=== PATIENT | female | born 1930 | race Caucasian/White ===

== ENCOUNTER 2017-09-30 14:10 | Inpatient (IN) | payer MEDICARE, BC ==
[2017-09-30] MEDS: METHYLPREDNISOLONE 125 MG INJ IV (16:37)
[2017-09-30] MEDS: SODIUM CHLORIDE 0.9% 1L BAG IV* (16:38)
[2017-09-30] MEDS: LEVOFLOXACIN 750MG/D5W (PMX) 150 ML IVPB (16:39)
[2017-09-30 16:55] LABS: ADD MAN DIFF? NO
[2017-09-30 16:58] LABS: WHITE BLOOD COUNT 4.1 10^3/ul (4.8-10.8)
[2017-09-30 16:58] LABS: BASOPHILS % 0.2 % (0.0-2.0); EOSINOPHILS % 0.5 % (0.0-7.0); HEMATOCRIT 43.4 % (37.0-47.0); HEMOGLOBIN 14.1 g/dl (12.0-16.0); LYMPHOCYTES # 1.5 10^3/ul (0.8-2.9); LYMPHOCYTES % 36.6 % (15.0-51.0); MEAN CORPUSCULAR HGB CONC 32.5 g/dl (32.0-37.0); MEAN CORPUSCULAR VOLUME 89.1 fl (82.0-101.0); MEAN PLATELET VOLUME 9.3 fl (7.4-10.4); MONOCYTE # 0.6 10^3/ul (0.3-0.9); MONOCYTES % 14.3 % (0.0-11.0); NEUTROPHILS % 48.2 % (39.0-77.0); PLATELET COUNT 189 10^3/UL (140-415); RED BLOOD COUNT 4.87 10^6/ul (4.20-5.40); RED CELL DISTRIBUTION WIDTH 13.2 % (11.5-14.5)
[2017-09-30 17:16] LABS: INR 0.92; PROTIME 12.4 Sec (11.9-14.9)
[2017-09-30 17:22] LABS: ALANINE AMINOTRANSFERASE 36 IU/L (13-69); ALBUMIN 4.1 g/dl (3.3-4.9); ALBUMIN/GLOBULIN RATIO 1.51; ALKALINE PHOSPHATASE 72 IU/L (42-121); AMYLASE 147 U/L (11-123); ANION GAP 16 (8-16); ASPARTATE AMINO TRANSFERASE 46 IU/L (15-46); BILIRUBIN,INDIRECT 0.1 mg/dl (0-1.1); BILIRUBIN,TOTAL 0.1 mg/dl (0.2-1.3); BLOOD UREA NITROGEN 20 mg/dl (7-20); CALCIUM 9.5 mg/dl (8.4-10.2); CARBON DIOXIDE 25 mmol/L (21-31); CHLORIDE 101 mmol/L (97-110); GLUCOSE 112 mg/dl (70-220); LIPASE 334 U/L (23-300); POTASSIUM 3.9 mmol/L (3.5-5.1); SODIUM 138 mmol/L (135-144); TOTAL PROTEIN 6.8 g/dl (6.1-8.1)
[2017-09-30 17:36] LABS: B-TYPE NATRIURETIC PEPTIDE 134 PG/ML (0-450)
[2017-09-30 17:43] LABS: TROPONIN-I < 0.012 ng/ml (0.00-0.12)
[2017-09-30] MEDS: ALBUTEROL 0.083% (NEB) 2.5 MG/3 ML AMP NEB (17:50)
[2017-09-30] MEDS: IPRATROPIUM (NEB) 0.5 MG/2.5 ML AMP INH (17:50)
[2017-09-30] MEDS: IPRATROPIUM (NEB) 0.5 MG/2.5 ML AMP NEB (17:50)
[2017-09-30 18:13] LABS: ADD UMIC YES; UR ASCORBIC ACID NEGATIVE (NEGATIVE); UR BILIRUBIN (Dip) NEGATIVE (NEGATIVE); UR BLOOD (Dip) 1+ mg/dL (NEGATIVE); UR CLARITY SLIGHTLY CLOUDY (CLEAR); UR COLOR YELLOW (YELLOW); UR GLUCOSE (Dip) NEGATIVE (NEGATIVE); UR KETONES (Dip) TRACE mg/dL (NEGATIVE); UR LEUKOCYTE ESTERASE (Dip) NEGATIVE Leu/ul (NEGATIVE); UR MUCUS FEW /HPF (NONE SEEN); UR NITRITE (Dip) NEGATIVE (NEGATIVE); UR RBC 14 /HPF (0-5); UR SPECIFIC GRAVITY (Dip) 1.014 (1.003-1.030); UR TOTAL PROTEIN (Dip) 2+ mg/dl (NEGATIVE); UR UROBILINOGEN (Dip) 2+ mg/dL (NEGATIVE); UR WBC 5 /HPF (0-5)
[2017-09-30 18:36] LABS: AADO2 Arterial 42.8 mmHg (7.0-24.0); Allen Test ACCEPTAB; Arterial Blood Gas Oxygen Sat 90.9 mmHG (95.0-100.0); Arterial COHb 0.3 % (0.0-3.0); Arterial Fraction of Oxyhgb 90.5 % (93.0-99.0); Arterial HCO3 24.1 mmol/L (22.0-26.0); Arterial MetHb 0.1 % (0.0-1.5); Arterial Total Hemglobin 13.2 g/dl (12.0-18.0); Arterial pCO2 41.5 mmhg (35-45); MODE ROOM AIR; Site Right Radial
[2017-09-30] MEDS ORDERED: ZOLPIDEM 5 MG TAB PO (22:00)
[2017-09-30] MEDS: ALBUTEROL 0.5% (NEB) 2.5 MG/0.5 ML AMP INH (22:33)
[2017-09-30] MEDS: METHYLPREDNISOLONE 40 MG INJ IV (23:04)
[2017-09-30] MEDS: DEXTROSE 5%-0.45% NACL 1,000 ML IV (23:05)
[2017-10-01] MEDS: PANTOPRAZOLE (EC) 40 MG TAB PO (06:36)
[2017-10-01] MEDS: METHYLPREDNISOLONE 40 MG INJ IV ×3 (06:36→21:42)
[2017-10-01 06:57] LABS: WHITE BLOOD COUNT 2.4 10^3/ul (4.8-10.8)
[2017-10-01 06:57] LABS: ABNORMAL IP MESSAGE 1; HEMATOCRIT 39.4 % (37.0-47.0); HEMOGLOBIN 12.9 g/dl (12.0-16.0); MEAN CORPUSCULAR HEMOGLOBIN 29.2 pg (29.0-33.0); MEAN CORPUSCULAR HGB CONC 32.7 g/dl (32.0-37.0); MEAN CORPUSCULAR VOLUME 89.1 fl (82.0-101.0); MEAN PLATELET VOLUME 9.5 fl (7.4-10.4); PLATELET COUNT 173 10^3/UL (140-415); RED BLOOD COUNT 4.42 10^6/ul (4.20-5.40); RED CELL DISTRIBUTION WIDTH 13.3 % (11.5-14.5)
[2017-10-01 07:21] LABS: POSITIVE DIFF @See below
[2017-10-01 07:22] LABS: ADD MAN DIFF? YES
[2017-10-01 07:51] LABS: ANION GAP 14 (8-16); BLOOD UREA NITROGEN 14 mg/dl (7-20); CALCIUM 8.9 mg/dl (8.4-10.2); CARBON DIOXIDE 24 mmol/L (21-31); CHLORIDE 108 mmol/L (97-110); CREATININE 0.84 mg/dl (0.44-1.00); GLUCOSE 190 mg/dl (70-220); POTASSIUM 4.1 mmol/L (3.5-5.1); SODIUM 142 mmol/L (135-144)
[2017-10-01 09:17] LABS: ANISOCYTOSIS 1+ (0-0); BAND NEUTROPHILS #M 0.1 10^3/ul (0.0-0.6); BAND NEUTROPHILS % (M) 5 % (0-4); BURR CELLS 2+ (0-0); LYMPHOCYTES #M 0.3 10^3/ul (0.8-2.9); LYMPHOCYTES % (M) 15 % (15-51); OVALOCYTES 1+ (0-0); PLATELET ESTIMATE NORMAL; POIKILOCYTOSIS 2+ (0-0); REACTIVE LYMPHOCYTES #M 0.1 10^3/ul (0.0-0.0); REACTIVE LYMPHOCYTES% (M) 5 % (0-0); SEG NEUT #M 1.8 10^3/ul (1.7-7.5); SEGMENTED NEUTROPHILS (M) % 75 % (39-77); SMUDGE%M 4 % (0-0)
[2017-10-01] MEDS: LEVOFLOXACIN 500MG/D5W (PMX) 100 ML IVPB (15:18)
[2017-10-01] MEDS: ACETAMINOPHEN 500 MG TAB PO (19:38)
[2017-10-01] MEDS: DEXTROSE 5%-0.45% NACL 1,000 ML IV (19:38)
[2017-10-02] MEDS: PANTOPRAZOLE (EC) 40 MG TAB PO (06:26)
[2017-10-02 07:02] LABS: ADD MAN DIFF? NO
[2017-10-02 07:06] LABS: WHITE BLOOD COUNT 10.1 10^3/ul (4.8-10.8)
[2017-10-02 07:06] LABS: BASOPHILS % 0.1 % (0.0-2.0); HEMATOCRIT 39.8 % (37.0-47.0); HEMOGLOBIN 13.1 g/dl (12.0-16.0); LYMPHOCYTES # 0.8 10^3/ul (0.8-2.9); LYMPHOCYTES % 8.3 % (15.0-51.0); MEAN CORPUSCULAR HGB CONC 32.9 g/dl (32.0-37.0); MEAN CORPUSCULAR VOLUME 88.2 fl (82.0-101.0); MEAN PLATELET VOLUME 9.5 fl (7.4-10.4); MONOCYTE # 0.3 10^3/ul (0.3-0.9); MONOCYTES % 3.3 % (0.0-11.0); NEUTROPHIL # 8.9 10^3/ul (1.6-7.5); NEUTROPHILS % 87.8 % (39.0-77.0); PLATELET COUNT 195 10^3/UL (140-415); RED BLOOD COUNT 4.51 10^6/ul (4.20-5.40); RED CELL DISTRIBUTION WIDTH 13.2 % (11.5-14.5)
[2017-10-02 07:53] LABS: ANION GAP 16 (8-16); BLOOD UREA NITROGEN 13 mg/dl (7-20); CALCIUM 9.3 mg/dl (8.4-10.2); CARBON DIOXIDE 26 mmol/L (21-31); CHLORIDE 105 mmol/L (97-110); CREATININE 0.79 mg/dl (0.44-1.00); GLUCOSE 165 mg/dl (70-220); POTASSIUM 3.6 mmol/L (3.5-5.1); SODIUM 143 mmol/L (135-144)
[2017-10-02] MEDS: METHYLPREDNISOLONE 40 MG INJ IV ×2 (09:00→21:32)
[2017-10-02] MEDS: DEXTROSE 5%-0.45% NACL 1,000 ML IV ×2 (14:00→16:42)
[2017-10-02] MEDS: LEVOFLOXACIN 500MG/D5W (PMX) 100 ML IVPB (16:43)
[2017-10-02] MEDS: PROMETHAZINE/CODEINE 5ML CUP PO (16:49)
[2017-10-02] MEDS: MAGNESIUM HYDROXIDE 30ML CUP PO (21:33)
[2017-10-02] MEDS: DOCUSATE SODIUM 100 MG CAP PO (21:33)
[2017-10-03] MEDS: PANTOPRAZOLE (EC) 40 MG TAB PO (05:27)
[2017-10-03] MEDS: METHYLPREDNISOLONE 40 MG INJ IV (08:45)
[2017-10-03] MEDS: DOCUSATE SODIUM 100 MG CAP PO ×2 (08:49→21:40)
[2017-10-03] MEDS: ENOXAPARIN 30 MG/0.3 ML SYG SC (08:49)
[2017-10-03] MEDS: DEXTROSE 5%-0.45% NACL 1,000 ML IV (10:00)
[2017-10-03] MEDS: predniSONE 10 MG TAB PO (14:37)
[2017-10-03] MEDS: LEVOFLOXACIN 500MG/D5W (PMX) 100 ML IVPB (16:05)
[2017-10-03] MEDS: ACETAMINOPHEN 500 MG TAB PO (17:17)
[2017-10-04] MEDS: PAROXETINE 10 MG TAB PO ×2 (00:28→08:19)
[2017-10-04] MEDS: PANTOPRAZOLE (EC) 40 MG TAB PO (06:01)
[2017-10-04 08:15] LABS: ADD MAN DIFF? NO
[2017-10-04] MEDS: DOCUSATE SODIUM 100 MG CAP PO ×2 (08:19→20:52)
[2017-10-04] MEDS: predniSONE 10 MG TAB PO (08:19)
[2017-10-04 08:24] LABS: BASOPHILS % 0.1 % (0.0-2.0); HEMATOCRIT 41.2 % (37.0-47.0); HEMOGLOBIN 14.2 g/dl (12.0-16.0); LYMPHOCYTES # 1.5 10^3/ul (0.8-2.9); LYMPHOCYTES % 15.3 % (15.0-51.0); MEAN CORPUSCULAR HEMOGLOBIN 29.5 pg (29.0-33.0); MEAN CORPUSCULAR HGB CONC 34.5 g/dl (32.0-37.0); MEAN CORPUSCULAR VOLUME 85.7 fl (82.0-101.0); MEAN PLATELET VOLUME 9.7 fl (7.4-10.4); MONOCYTE # 0.9 10^3/ul (0.3-0.9); MONOCYTES % 9.1 % (0.0-11.0); NEUTROPHIL # 7.4 10^3/ul (1.6-7.5); PLATELET COUNT 230 10^3/UL (140-415); RED BLOOD COUNT 4.81 10^6/ul (4.20-5.40)
[2017-10-04] MEDS: ENOXAPARIN 30 MG/0.3 ML SYG SC (08:25)
[2017-10-04 08:54] LABS: ANION GAP 13 (8-16); BLOOD UREA NITROGEN 16 mg/dl (7-20); CARBON DIOXIDE 31 mmol/L (21-31); CHLORIDE 99 mmol/L (97-110); CREATININE 0.75 mg/dl (0.44-1.00); GLUCOSE 106 mg/dl (70-220); MAGNESIUM 2.1 mg/dl (1.7-2.5); SODIUM 140 mmol/L (135-144)
[2017-10-04] MEDS: POTASSIUM CHLORIDE (SR) 20 MEQ TAB PO (10:37)
[2017-10-04] MEDS: ACETAMINOPHEN 500 MG TAB PO (12:31)
[2017-10-04] MEDS: PROMETHAZINE/CODEINE 5ML CUP PO (16:08)
[2017-10-04] MEDS: LEVOFLOXACIN 500MG/D5W (PMX) 100 ML IVPB (16:08)
[2017-10-04] MEDS: VANCOMYCIN 1 GM (PMX) 250 ML IVPB (16:37)
[2017-10-04] MEDS: DORZOLAMIDE 2% 10 ML OPH BOTH EYES (20:52)
[2017-10-05] MEDS: PANTOPRAZOLE (EC) 40 MG TAB PO (05:38)
[2017-10-05 06:07] LABS: ADD MAN DIFF? NO
[2017-10-05 06:11] LABS: WHITE BLOOD COUNT 8.6 10^3/ul (4.8-10.8)
[2017-10-05 06:11] LABS: BASOPHILS % 0.1 % (0.0-2.0); HEMATOCRIT 41.1 % (37.0-47.0); HEMOGLOBIN 13.9 g/dl (12.0-16.0); LYMPHOCYTES # 1.6 10^3/ul (0.8-2.9); LYMPHOCYTES % 18.6 % (15.0-51.0); MEAN CORPUSCULAR HEMOGLOBIN 29.3 pg (29.0-33.0); MEAN CORPUSCULAR HGB CONC 33.8 g/dl (32.0-37.0); MEAN CORPUSCULAR VOLUME 86.7 fl (82.0-101.0); MEAN PLATELET VOLUME 9.3 fl (7.4-10.4); PLATELET COUNT 222 10^3/UL (140-415); RED BLOOD COUNT 4.74 10^6/ul (4.20-5.40); RED CELL DISTRIBUTION WIDTH 13.1 % (11.5-14.5)
[2017-10-05 06:39] LABS: ANION GAP 11 (8-16); BLOOD UREA NITROGEN 18 mg/dl (7-20); CALCIUM 8.9 mg/dl (8.4-10.2); CARBON DIOXIDE 32 mmol/L (21-31); CHLORIDE 101 mmol/L (97-110); CREATININE 0.76 mg/dl (0.44-1.00); GLUCOSE 99 mg/dl (70-220); MAGNESIUM 2.2 mg/dl (1.7-2.5); POTASSIUM 3.4 mmol/L (3.5-5.1); SODIUM 141 mmol/L (135-144)
[2017-10-05] MEDS: DOCUSATE SODIUM 100 MG CAP PO ×2 (08:55→20:43)
[2017-10-05] MEDS: predniSONE 10 MG TAB PO (08:56)
[2017-10-05] MEDS: PAROXETINE 10 MG TAB PO (08:56)
[2017-10-05] MEDS: DORZOLAMIDE 2% 10 ML OPH BOTH EYES ×2 (08:57→20:42)
[2017-10-05] MEDS: ENOXAPARIN 30 MG/0.3 ML SYG SC (08:58)
[2017-10-05] MEDS: POTASSIUM CHLORIDE (SR) 10 MEQ TAB PO (09:24)
[2017-10-05] MEDS: AMLODIPINE 2.5 MG TAB PO (09:24)
[2017-10-05] MEDS: ALBUTEROL 0.083% (NEB) 2.5 MG/3 ML AMP HHN ×2 (15:43→21:32)
[2017-10-05] MEDS: LEVOFLOXACIN 500MG/D5W (PMX) 100 ML IVPB (15:59)
[2017-10-05] MEDS: PROMETHAZINE/CODEINE 5ML CUP PO (15:59)
[2017-10-06 06:03] LABS: ADD MAN DIFF? NO
[2017-10-06] MEDS: PANTOPRAZOLE (EC) 40 MG TAB PO (06:09)
[2017-10-06 06:13] LABS: WHITE BLOOD COUNT 9.8 10^3/ul (4.8-10.8)
[2017-10-06 06:13] LABS: BASOPHILS % 0.3 % (0.0-2.0); EOSINOPHILS % 0.3 % (0.0-7.0); HEMATOCRIT 40.6 % (37.0-47.0); HEMOGLOBIN 13.5 g/dl (12.0-16.0); LYMPHOCYTES # 1.6 10^3/ul (0.8-2.9); LYMPHOCYTES % 15.9 % (15.0-51.0); MEAN CORPUSCULAR HEMOGLOBIN 29.5 pg (29.0-33.0); MEAN CORPUSCULAR HGB CONC 33.3 g/dl (32.0-37.0); MEAN CORPUSCULAR VOLUME 88.6 fl (82.0-101.0); MEAN PLATELET VOLUME 9.3 fl (7.4-10.4); MONOCYTES % 10.6 % (0.0-11.0); NEUTROPHILS % 71.3 % (39.0-77.0); PLATELET COUNT 223 10^3/UL (140-415); RED BLOOD COUNT 4.58 10^6/ul (4.20-5.40); RED CELL DISTRIBUTION WIDTH 13.2 % (11.5-14.5)
[2017-10-06 06:58] LABS: ANION GAP 13 (8-16); BLOOD UREA NITROGEN 19 mg/dl (7-20); CALCIUM 8.7 mg/dl (8.4-10.2); CARBON DIOXIDE 30 mmol/L (21-31); CHLORIDE 101 mmol/L (97-110); CREATININE 0.79 mg/dl (0.44-1.00); GLUCOSE 100 mg/dl (70-220); POTASSIUM 3.8 mmol/L (3.5-5.1); SODIUM 140 mmol/L (135-144)
[2017-10-06] MEDS: DORZOLAMIDE 2% 10 ML OPH BOTH EYES ×2 (09:12→20:26)
[2017-10-06] MEDS: predniSONE 10 MG TAB PO (09:12)
[2017-10-06] MEDS: PAROXETINE 10 MG TAB PO (09:13)
[2017-10-06] MEDS: DOCUSATE SODIUM 100 MG CAP PO ×2 (09:13→20:26)
[2017-10-06] MEDS: AMLODIPINE 2.5 MG TAB PO (09:13)
[2017-10-06] MEDS: ENOXAPARIN 30 MG/0.3 ML SYG SC (09:22)
[2017-10-06] MEDS: ALBUTEROL 0.083% (NEB) 2.5 MG/3 ML AMP HHN ×3 (10:05→20:30)
[2017-10-06] MEDS: LEVOFLOXACIN 500MG/D5W (PMX) 100 ML IVPB (16:51)
[2017-10-06] MEDS: MAGNESIUM CITRATE 300 ML BTL PO (19:30)
[2017-10-06] MEDS: FLUTICASONE 0.05% 16 GM NAS SPRAY NASAL (20:26)
[2017-10-06] MEDS: IOHEXOL 300MG/ML 150 ML BTL (22:05)
[2017-10-06] MEDS: SOD CHLORIDE 0.9% 100 ML (22:05)
[2017-10-07] MEDS: PANTOPRAZOLE (EC) 40 MG TAB PO (06:30)
[2017-10-07] MEDS: PAROXETINE 10 MG TAB PO (09:12)
[2017-10-07] MEDS: predniSONE 10 MG TAB PO (09:12)
[2017-10-07] MEDS: DOCUSATE SODIUM 100 MG CAP PO ×2 (09:12→21:20)
[2017-10-07] MEDS: AMLODIPINE 2.5 MG TAB PO (09:13)
[2017-10-07] MEDS: DORZOLAMIDE 2% 10 ML OPH BOTH EYES ×2 (09:13→21:20)
[2017-10-07] MEDS: FLUTICASONE 0.05% 16 GM NAS SPRAY NASAL ×2 (09:13→21:20)
[2017-10-07] MEDS: ENOXAPARIN 30 MG/0.3 ML SYG SC (09:19)
[2017-10-07] MEDS: ALBUTEROL 0.083% (NEB) 2.5 MG/3 ML AMP HHN ×3 (09:41→20:42)
[2017-10-07] MEDS: LEVOFLOXACIN 500MG/D5W (PMX) 100 ML IVPB (16:30)
[2017-10-08] MEDS: PANTOPRAZOLE (EC) 40 MG TAB PO (05:45)
[2017-10-08 05:58] LABS: ADD MAN DIFF? NO
[2017-10-08 06:00] LABS: BASOPHILS % 0.2 % (0.0-2.0); EOSINOPHILS % 0.1 % (0.0-7.0); HEMATOCRIT 39.3 % (37.0-47.0); HEMOGLOBIN 12.9 g/dl (12.0-16.0); LYMPHOCYTES # 1.2 10^3/ul (0.8-2.9); LYMPHOCYTES % 10.3 % (15.0-51.0); MEAN CORPUSCULAR HEMOGLOBIN 29.1 pg (29.0-33.0); MEAN CORPUSCULAR HGB CONC 32.8 g/dl (32.0-37.0); MEAN CORPUSCULAR VOLUME 88.7 fl (82.0-101.0); MEAN PLATELET VOLUME 9.2 fl (7.4-10.4); MONOCYTE # 0.9 10^3/ul (0.3-0.9); MONOCYTES % 7.9 % (0.0-11.0); NEUTROPHIL # 9.2 10^3/ul (1.6-7.5); NEUTROPHILS % 80.1 % (39.0-77.0); PLATELET COUNT 233 10^3/UL (140-415); RED BLOOD COUNT 4.43 10^6/ul (4.20-5.40); RED CELL DISTRIBUTION WIDTH 13.4 % (11.5-14.5)
[2017-10-08 06:00] LABS: WHITE BLOOD COUNT 11.5 10^3/ul (4.8-10.8)
[2017-10-08] MEDS: ALBUTEROL 0.083% (NEB) 2.5 MG/3 ML AMP HHN ×3 (06:28→20:40)
[2017-10-08 06:49] LABS: ALANINE AMINOTRANSFERASE 40 IU/L (13-69); ALKALINE PHOSPHATASE 49 IU/L (42-121); ANION GAP 9 (8-16); ASPARTATE AMINO TRANSFERASE 23 IU/L (15-46); BILIRUBIN,INDIRECT 0.4 mg/dl (0-1.1); BILIRUBIN,TOTAL 0.4 mg/dl (0.2-1.3); BLOOD UREA NITROGEN 19 mg/dl (7-20); CALCIUM 8.5 mg/dl (8.4-10.2); CARBON DIOXIDE 31 mmol/L (21-31); CHLORIDE 101 mmol/L (97-110); CREATININE 0.78 mg/dl (0.44-1.00); GLUCOSE 115 mg/dl (70-220); SODIUM 137 mmol/L (135-144); TOTAL PROTEIN 5.3 g/dl (6.1-8.1)
[2017-10-08 07:10] LABS: CARCINOEMBRYONIC ANTIGEN 1.6 ng/ml (0.0-5.0)
[2017-10-08 07:14] LABS: CANCER ANTIGEN 19-9 60.8 U/ml (0.0-37.0)
[2017-10-08] MEDS: FLUTICASONE 0.05% 16 GM NAS SPRAY NASAL ×2 (08:50→20:35)
[2017-10-08] MEDS: AMLODIPINE 2.5 MG TAB PO (08:50)
[2017-10-08] MEDS: predniSONE 10 MG TAB PO (08:50)
[2017-10-08] MEDS: DORZOLAMIDE 2% 10 ML OPH BOTH EYES ×2 (08:50→20:35)
[2017-10-08] MEDS: PAROXETINE 10 MG TAB PO (08:50)
[2017-10-08] MEDS: DOCUSATE SODIUM 100 MG CAP PO ×2 (08:50→20:34)
[2017-10-08] MEDS: ENOXAPARIN 30 MG/0.3 ML SYG SC (08:52)
[2017-10-08] MEDS: SOD CHLORIDE 0.9% 100 ML (11:54)
[2017-10-08] MEDS: IOHEXOL 300MG/ML 150 ML BTL (11:54)
[2017-10-08 14:36] LABS: CANCER ANTIGEN 125 7.5 U/ml (0.0-35.0)
[2017-10-08] MEDS: LEVOFLOXACIN 500MG/D5W (PMX) 100 ML IVPB (17:02)
[2017-10-08] MEDS: PROMETHAZINE/CODEINE 5ML CUP PO (18:14)
[2017-10-09] MEDS: PANTOPRAZOLE (EC) 40 MG TAB PO (06:16)
[2017-10-09] MEDS: AMLODIPINE 2.5 MG TAB PO (10:12)
[2017-10-09] MEDS: PAROXETINE 10 MG TAB PO (10:12)
[2017-10-09] MEDS: DOCUSATE SODIUM 100 MG CAP PO ×2 (10:12→20:46)
[2017-10-09] MEDS: predniSONE 10 MG TAB PO (10:12)
[2017-10-09] MEDS: FLUTICASONE 0.05% 16 GM NAS SPRAY NASAL ×2 (10:12→20:46)
[2017-10-09] MEDS: DORZOLAMIDE 2% 10 ML OPH BOTH EYES ×2 (10:13→20:47)
[2017-10-09] MEDS: ENOXAPARIN 30 MG/0.3 ML SYG SC (10:28)
[2017-10-09] MEDS: LEVOFLOXACIN 500MG/D5W (PMX) 100 ML IVPB (15:47)
[2017-10-09] MEDS: ALBUTEROL 0.083% (NEB) 2.5 MG/3 ML AMP HHN (20:51)
[2017-10-10 06:03] LABS: ADD MAN DIFF? NO
[2017-10-10 06:10] LABS: WHITE BLOOD COUNT 9.3 10^3/ul (4.8-10.8)
[2017-10-10 06:10] LABS: BASOPHILS % 0.1 % (0.0-2.0); EOSINOPHILS % 0.1 % (0.0-7.0); HEMATOCRIT 38.5 % (37.0-47.0); HEMOGLOBIN 12.7 g/dl (12.0-16.0); LYMPHOCYTES # 1.1 10^3/ul (0.8-2.9); LYMPHOCYTES % 12.2 % (15.0-51.0); MEAN CORPUSCULAR HEMOGLOBIN 29.5 pg (29.0-33.0); MEAN CORPUSCULAR VOLUME 89.3 fl (82.0-101.0); MEAN PLATELET VOLUME 9.4 fl (7.4-10.4); MONOCYTE # 0.7 10^3/ul (0.3-0.9); MONOCYTES % 7.5 % (0.0-11.0); NEUTROPHIL # 7.3 10^3/ul (1.6-7.5); NEUTROPHILS % 78.3 % (39.0-77.0); PLATELET COUNT 235 10^3/UL (140-415); RED BLOOD COUNT 4.31 10^6/ul (4.20-5.40); RED CELL DISTRIBUTION WIDTH 13.6 % (11.5-14.5)
[2017-10-10] MEDS: PANTOPRAZOLE (EC) 40 MG TAB PO (06:22)
[2017-10-10 06:51] LABS: ALANINE AMINOTRANSFERASE 39 IU/L (13-69); ALKALINE PHOSPHATASE 45 IU/L (42-121); ANION GAP 8 (8-16); ASPARTATE AMINO TRANSFERASE 20 IU/L (15-46); BILIRUBIN,INDIRECT 0.3 mg/dl (0-1.1); BILIRUBIN,TOTAL 0.3 mg/dl (0.2-1.3); BLOOD UREA NITROGEN 20 mg/dl (7-20); CALCIUM 9.1 mg/dl (8.4-10.2); CARBON DIOXIDE 32 mmol/L (21-31); CHLORIDE 101 mmol/L (97-110); CREATININE 0.79 mg/dl (0.44-1.00); GLUCOSE 110 mg/dl (70-220); POTASSIUM 4.1 mmol/L (3.5-5.1); SODIUM 137 mmol/L (135-144); TOTAL PROTEIN 5.5 g/dl (6.1-8.1)
[2017-10-10] MEDS: AMLODIPINE 2.5 MG TAB PO (08:38)
[2017-10-10] MEDS: predniSONE 10 MG TAB PO (08:38)
[2017-10-10] MEDS: DORZOLAMIDE 2% 10 ML OPH BOTH EYES ×2 (08:39→20:27)
[2017-10-10] MEDS: FLUTICASONE 0.05% 16 GM NAS SPRAY NASAL ×2 (08:39→20:27)
[2017-10-10] MEDS: PAROXETINE 10 MG TAB PO (08:39)
[2017-10-10] MEDS: DOCUSATE SODIUM 100 MG CAP PO ×2 (08:39→20:27)
[2017-10-10] MEDS: ENOXAPARIN 30 MG/0.3 ML SYG SC (08:44)
[2017-10-10 13:37] LABS: ANCA SCREEN NEGATIVE (NEGATIVE)
[2017-10-10] MEDS: LEVOFLOXACIN 500MG/D5W (PMX) 100 ML IVPB (15:05)
[2017-10-10 16:37] LABS: MYELOPEROXIDASE ANTIBODY <1.0 AI; PROTEINASE-3 ANTIBODY <1.0 AI
[2017-10-10] MEDS: ALBUTEROL 0.083% (NEB) 2.5 MG/3 ML AMP HHN (21:01)
[2017-10-11] MEDS: PANTOPRAZOLE (EC) 40 MG TAB PO (06:23)
[2017-10-11] MEDS: DOCUSATE SODIUM 100 MG CAP PO (09:26)
[2017-10-11] MEDS: PAROXETINE 10 MG TAB PO (09:26)
[2017-10-11] MEDS: predniSONE 10 MG TAB PO (09:26)
[2017-10-11] MEDS: AMLODIPINE 2.5 MG TAB PO (09:26)
[2017-10-11] MEDS: ENOXAPARIN 30 MG/0.3 ML SYG SC (09:33)
[2017-10-11] MEDS: DORZOLAMIDE 2% 10 ML OPH BOTH EYES (09:34)
[2017-10-11] MEDS: FLUTICASONE 0.05% 16 GM NAS SPRAY NASAL (09:35)
[2017-10-11 12:01] LABS: NIL 0.02 IU/mL; QUANTIFERON(R)-TB GOLD NEGATIVE (NEGATIVE); TB-NIL <0.00 IU/mL
[2017-10-11] MEDS: PROMETHAZINE/CODEINE 5ML CUP PO (13:08)
[2017-10-11] MEDS: LORATADINE 10 MG TAB PO (13:12)
[2017-10-11] MEDS: LEVOFLOXACIN 500MG/D5W (PMX) 100 ML IVPB (16:47)
[2017-10-12] MEDS ORDERED: predniSONE 5 MG TAB PO (09:00)
== END 2017-10-11 20:00 | DRG 191 ==
LOC: MS2 10-04 11:30 → E/R 14:10 → TEL 16:09
DX: J44.1 Chronic obstructive pulmonary disease with (acute) exacerbation (principal); J45.901 Unspecified asthma with (acute) exacerbation; N39.0 Urinary tract infection, site not specified; F03.90 Unspecified dementia, unspecified severity, without behavioral disturbance, psychotic disturbance, mood disturbance, and anxiety; J20.9 Acute bronchitis, unspecified; J44.0 Chronic obstructive pulmonary disease with (acute) lower respiratory infection; R09.02 Hypoxemia; R91.8 Other nonspecific abnormal finding of lung field; J11.1 Influenza due to unidentified influenza virus with other respiratory manifestations; I10 Essential (primary) hypertension; E78.5 Hyperlipidemia, unspecified
CPT/HCPCS: 36600; 71010; 71045; 71260; 74177; 80048; 80053; 81001; 82150; 82164; 82378; 82803; 83690; 83735; 83880; 84484; 85025; 85610; 85730; 86021; 86301; 86304; 86480; 86635; 87040; 87086; 87400; 93005; 94640; 94664; 96374; 96375; 97110; 97116; 97162; 97530; 99285-25

== ENCOUNTER 2017-10-11 20:27 | Inpatient (IN) | payer MEDICARE, BC ==
[2017-10-11] MEDS: DORZOLAMIDE 2% 10 ML OPH BOTH EYES (21:45)
[2017-10-11 22:51] LABS: ADD UMIC NO; UR ASCORBIC ACID 20 mg/dL (NEGATIVE); UR BILIRUBIN (Dip) NEGATIVE (NEGATIVE); UR BLOOD (Dip) NEGATIVE (NEGATIVE); UR CLARITY CLEAR (CLEAR); UR COLOR STRAW (YELLOW); UR GLUCOSE (Dip) NEGATIVE (NEGATIVE); UR KETONES (Dip) NEGATIVE (NEGATIVE); UR LEUKOCYTE ESTERASE (Dip) NEGATIVE Leu/ul (NEGATIVE); UR NITRITE (Dip) NEGATIVE (NEGATIVE); UR SPECIFIC GRAVITY (Dip) 1.009 (1.003-1.030); UR TOTAL PROTEIN (Dip) NEGATIVE (NEGATIVE); UR UROBILINOGEN (Dip) NEGATIVE (NEGATIVE)
[2017-10-12] MEDS ORDERED: MAGNESIUM HYDROXIDE 30ML CUP PO
[2017-10-12] MEDS ORDERED: BISACODYL 10 MG SUPP PR
[2017-10-12] MEDS: PANTOPRAZOLE (EC) 40 MG TAB PO (05:55)
[2017-10-12 07:40] LABS: ADD MAN DIFF? NO
[2017-10-12 07:50] LABS: BASOPHILS % 0.1 % (0.0-2.0); EOSINOPHILS % 0.2 % (0.0-7.0); HEMATOCRIT 39.4 % (37.0-47.0); HEMOGLOBIN 13.1 g/dl (12.0-16.0); LYMPHOCYTES # 1.4 10^3/ul (0.8-2.9); LYMPHOCYTES % 11.4 % (15.0-51.0); MEAN CORPUSCULAR HEMOGLOBIN 29.6 pg (29.0-33.0); MEAN CORPUSCULAR HGB CONC 33.2 g/dl (32.0-37.0); MEAN CORPUSCULAR VOLUME 89.1 fl (82.0-101.0); MEAN PLATELET VOLUME 9.8 fl (7.4-10.4); MONOCYTE # 0.8 10^3/ul (0.3-0.9); MONOCYTES % 6.4 % (0.0-11.0); NEUTROPHIL # 9.7 10^3/ul (1.6-7.5); NEUTROPHILS % 80.7 % (39.0-77.0); PLATELET COUNT 241 10^3/UL (140-415); RED BLOOD COUNT 4.42 10^6/ul (4.20-5.40); RED CELL DISTRIBUTION WIDTH 14.1 % (11.5-14.5)
[2017-10-12 07:50] LABS: WHITE BLOOD COUNT 12.1 10^3/ul (4.8-10.8)
[2017-10-12 08:12] LABS: ALANINE AMINOTRANSFERASE 37 IU/L (13-69); ALBUMIN 3.3 g/dl (3.3-4.9); ALBUMIN/GLOBULIN RATIO 1.57; ALKALINE PHOSPHATASE 48 IU/L (42-121); ANION GAP 11 (8-16); ASPARTATE AMINO TRANSFERASE 19 IU/L (15-46); BILIRUBIN,INDIRECT 0.5 mg/dl (0-1.1); BILIRUBIN,TOTAL 0.5 mg/dl (0.2-1.3); BLOOD UREA NITROGEN 24 mg/dl (7-20); CALCIUM 8.8 mg/dl (8.4-10.2); CARBON DIOXIDE 29 mmol/L (21-31); CHLORIDE 102 mmol/L (97-110); CREATININE 0.74 mg/dl (0.44-1.00); GLUCOSE 100 mg/dl (70-220); SODIUM 138 mmol/L (135-144); TOTAL PROTEIN 5.4 g/dl (6.1-8.1)
[2017-10-12] MEDS: DORZOLAMIDE 2% 10 ML OPH BOTH EYES ×2 (09:48→22:04)
[2017-10-12] MEDS: LORATADINE 10 MG TAB PO (09:49)
[2017-10-12] MEDS: predniSONE 5 MG TAB PO (09:49)
[2017-10-12] MEDS: PAROXETINE 10 MG TAB PO (09:49)
[2017-10-12] MEDS: MULTIVITAMINS/MINERALS TAB PO (09:49)
[2017-10-12] MEDS: AMLODIPINE 2.5 MG TAB PO (09:49)
[2017-10-12] MEDS: DOCUSATE SODIUM 100 MG CAP PO ×2 (09:49→22:05)
[2017-10-12] MEDS: SALMETEROL/FLUTICASONE 250/50 INHA INH ×2 (09:54→22:04)
[2017-10-12] MEDS: ATORVASTATIN 40 MG TAB PO (22:05)
[2017-10-12] MEDS: SENNA TAB PO (22:05)
[2017-10-13] MEDS: PANTOPRAZOLE (EC) 40 MG TAB PO (06:44)
[2017-10-13] MEDS: predniSONE 5 MG TAB PO (09:57)
[2017-10-13] MEDS: LORATADINE 10 MG TAB PO (09:57)
[2017-10-13] MEDS: PAROXETINE 10 MG TAB PO (09:57)
[2017-10-13] MEDS: DOCUSATE SODIUM 100 MG CAP PO ×2 (09:58→20:32)
[2017-10-13] MEDS: SALMETEROL/FLUTICASONE 250/50 INHA INH ×2 (09:58→20:32)
[2017-10-13] MEDS: DORZOLAMIDE 2% 10 ML OPH BOTH EYES ×2 (09:58→20:32)
[2017-10-13] MEDS: AMLODIPINE 2.5 MG TAB PO (09:58)
[2017-10-13] MEDS: MULTIVITAMINS/MINERALS TAB PO (09:59)
[2017-10-13] MEDS: SENNA TAB PO (20:32)
[2017-10-13] MEDS: ATORVASTATIN 40 MG TAB PO (20:32)
[2017-10-14] MEDS: PANTOPRAZOLE (EC) 40 MG TAB PO (06:22)
[2017-10-14] MEDS: PAROXETINE 10 MG TAB PO (10:26)
[2017-10-14] MEDS: predniSONE 5 MG TAB PO (10:26)
[2017-10-14] MEDS: MULTIVITAMINS/MINERALS TAB PO (10:26)
[2017-10-14] MEDS: DORZOLAMIDE 2% 10 ML OPH BOTH EYES ×2 (10:26→21:06)
[2017-10-14] MEDS: SALMETEROL/FLUTICASONE 250/50 INHA INH ×2 (10:26→21:07)
[2017-10-14] MEDS: LORATADINE 10 MG TAB PO (10:27)
[2017-10-14] MEDS: AMLODIPINE 2.5 MG TAB PO (10:27)
[2017-10-14] MEDS: DOCUSATE SODIUM 100 MG CAP PO ×2 (10:27→21:07)
[2017-10-14] MEDS: ATORVASTATIN 40 MG TAB PO (21:07)
[2017-10-14] MEDS: SENNA TAB PO (21:07)
[2017-10-15] MEDS: PANTOPRAZOLE (EC) 40 MG TAB PO (05:45)
[2017-10-15] MEDS: AMLODIPINE 2.5 MG TAB PO (09:21)
[2017-10-15] MEDS: MULTIVITAMINS/MINERALS TAB PO (09:21)
[2017-10-15] MEDS: DOCUSATE SODIUM 100 MG CAP PO ×2 (09:21→21:17)
[2017-10-15] MEDS: LORATADINE 10 MG TAB PO (09:21)
[2017-10-15] MEDS: PAROXETINE 10 MG TAB PO (09:21)
[2017-10-15] MEDS: predniSONE 5 MG TAB PO (09:21)
[2017-10-15] MEDS: LACTULOSE 30ML CUP PO (09:22)
[2017-10-15] MEDS: SALMETEROL/FLUTICASONE 250/50 INHA INH ×2 (09:22→21:17)
[2017-10-15] MEDS: DORZOLAMIDE 2% 10 ML OPH BOTH EYES ×2 (09:22→21:17)
[2017-10-15] MEDS ORDERED: ACETAMINOPHEN 325 MG TAB PO (14:00)
[2017-10-15] MEDS: GUAIFENESIN/DM 5ML CUP PO (17:54)
[2017-10-15] MEDS: SENNA TAB PO (21:17)
[2017-10-15] MEDS: ATORVASTATIN 40 MG TAB PO (21:18)
[2017-10-16] MEDS: PANTOPRAZOLE (EC) 40 MG TAB PO (06:49)
[2017-10-16] MEDS: DORZOLAMIDE 2% 10 ML OPH BOTH EYES ×2 (09:06→21:42)
[2017-10-16] MEDS: MULTIVITAMINS/MINERALS TAB PO (09:07)
[2017-10-16] MEDS: predniSONE 5 MG TAB PO (09:07)
[2017-10-16] MEDS: SALMETEROL/FLUTICASONE 250/50 INHA INH ×2 (09:07→21:42)
[2017-10-16] MEDS: AMLODIPINE 2.5 MG TAB PO (09:07)
[2017-10-16] MEDS: GUAIFENESIN/DM 5ML CUP PO (09:07)
[2017-10-16] MEDS: DOCUSATE SODIUM 100 MG CAP PO ×2 (09:07→21:42)
[2017-10-16] MEDS: LORATADINE 10 MG TAB PO (09:08)
[2017-10-16] MEDS: PAROXETINE 10 MG TAB PO (09:08)
[2017-10-16] MEDS: SENNA TAB PO (21:00)
[2017-10-16] MEDS: ATORVASTATIN 40 MG TAB PO (21:42)
[2017-10-17] MEDS: PANTOPRAZOLE (EC) 40 MG TAB PO (06:44)
[2017-10-17] MEDS: predniSONE 5 MG TAB PO (08:32)
[2017-10-17] MEDS: MULTIVITAMINS/MINERALS TAB PO (08:32)
[2017-10-17] MEDS: DOCUSATE SODIUM 100 MG CAP PO ×2 (08:32→21:08)
[2017-10-17] MEDS: AMLODIPINE 2.5 MG TAB PO (08:33)
[2017-10-17] MEDS: SALMETEROL/FLUTICASONE 250/50 INHA INH ×2 (08:33→21:08)
[2017-10-17] MEDS: DORZOLAMIDE 2% 10 ML OPH BOTH EYES ×2 (08:33→21:08)
[2017-10-17] MEDS: LORATADINE 10 MG TAB PO (08:33)
[2017-10-17] MEDS: PAROXETINE 10 MG TAB PO (10:05)
[2017-10-17] MEDS: SENNA TAB PO (21:00)
[2017-10-17] MEDS: ATORVASTATIN 40 MG TAB PO (21:07)
[2017-10-18] MEDS: PANTOPRAZOLE (EC) 40 MG TAB PO (06:43)
[2017-10-18] MEDS: BARIUM SULFATE 135 ML (E-Z HD) PO (08:34)
[2017-10-18] MEDS: PAROXETINE 10 MG TAB PO (09:00)
[2017-10-18] MEDS: DORZOLAMIDE 2% 10 ML OPH BOTH EYES ×4 (13:30→21:42)
[2017-10-18] MEDS: MULTIVITAMINS/MINERALS TAB PO (13:31)
[2017-10-18] MEDS: predniSONE 5 MG TAB PO (13:31)
[2017-10-18] MEDS: DOCUSATE SODIUM 100 MG CAP PO ×2 (13:31→21:38)
[2017-10-18] MEDS: SALMETEROL/FLUTICASONE 250/50 INHA INH ×4 (13:32→21:42)
[2017-10-18] MEDS: LORATADINE 10 MG TAB PO (13:32)
[2017-10-18] MEDS: AMLODIPINE 2.5 MG TAB PO (13:38)
[2017-10-18] MEDS: SENNA TAB PO (21:00)
[2017-10-18] MEDS: ATORVASTATIN 40 MG TAB PO (21:38)
[2017-10-19] MEDS: PANTOPRAZOLE (EC) 40 MG TAB PO (06:52)
[2017-10-19] MEDS: DOCUSATE SODIUM 100 MG CAP PO ×2 (08:49→20:49)
[2017-10-19] MEDS: DORZOLAMIDE 2% 10 ML OPH BOTH EYES ×2 (08:49→20:50)
[2017-10-19] MEDS: LORATADINE 10 MG TAB PO (08:49)
[2017-10-19] MEDS: SALMETEROL/FLUTICASONE 250/50 INHA INH ×2 (08:49→20:56)
[2017-10-19] MEDS: MULTIVITAMINS/MINERALS TAB PO (08:49)
[2017-10-19] MEDS: predniSONE 5 MG TAB PO (08:49)
[2017-10-19] MEDS: AMLODIPINE 2.5 MG TAB PO (08:49)
[2017-10-19] MEDS: PAROXETINE 10 MG TAB PO (11:41)
[2017-10-19] MEDS: ATORVASTATIN 40 MG TAB PO (20:49)
[2017-10-19] MEDS: SENNA TAB PO (20:50)
[2017-10-20] MEDS ORDERED: PENDING SANTYL ORDER FOR WOUND CARE XX
[2017-10-20] MEDS: PANTOPRAZOLE (EC) 40 MG TAB PO (05:25)
[2017-10-20 07:47] LABS: ADD MAN DIFF? NO
[2017-10-20 08:12] LABS: BASOPHILS % 0.1 % (0.0-2.0); EOSINOPHILS # 0.1 10^3/ul (0.0-0.5); EOSINOPHILS % 0.7 % (0.0-7.0); HEMATOCRIT 39.4 % (37.0-47.0); LYMPHOCYTES # 1.4 10^3/ul (0.8-2.9); MEAN CORPUSCULAR HEMOGLOBIN 29.9 pg (29.0-33.0); MEAN CORPUSCULAR VOLUME 90.6 fl (82.0-101.0); MEAN PLATELET VOLUME 9.9 fl (7.4-10.4); MONOCYTE # 0.7 10^3/ul (0.3-0.9); MONOCYTES % 6.2 % (0.0-11.0); NEUTROPHIL # 8.4 10^3/ul (1.6-7.5); NEUTROPHILS % 79.4 % (39.0-77.0); PLATELET COUNT 179 10^3/UL (140-415); RED BLOOD COUNT 4.35 10^6/ul (4.20-5.40); RED CELL DISTRIBUTION WIDTH 15.2 % (11.5-14.5)
[2017-10-20 08:12] LABS: WHITE BLOOD COUNT 10.5 10^3/ul (4.8-10.8)
[2017-10-20 08:14] LABS: ANION GAP 13 (8-16); BLOOD UREA NITROGEN 20 mg/dl (7-20); CALCIUM 8.9 mg/dl (8.4-10.2); CARBON DIOXIDE 26 mmol/L (21-31); CHLORIDE 103 mmol/L (97-110); CREATININE 0.75 mg/dl (0.44-1.00); GLUCOSE 89 mg/dl (70-220); POTASSIUM 3.9 mmol/L (3.5-5.1); SODIUM 138 mmol/L (135-144)
[2017-10-20] MEDS: DORZOLAMIDE 2% 10 ML OPH BOTH EYES ×2 (08:38→20:39)
[2017-10-20] MEDS: SALMETEROL/FLUTICASONE 250/50 INHA INH ×2 (08:38→20:38)
[2017-10-20] MEDS: LORATADINE 10 MG TAB PO (08:38)
[2017-10-20] MEDS: PAROXETINE 10 MG TAB PO (08:38)
[2017-10-20] MEDS: AMLODIPINE 2.5 MG TAB PO (08:39)
[2017-10-20] MEDS: MULTIVITAMINS/MINERALS TAB PO (08:39)
[2017-10-20] MEDS: predniSONE 10 MG TAB PO (08:39)
[2017-10-20] MEDS: DOCUSATE SODIUM 100 MG CAP PO ×2 (08:39→20:39)
[2017-10-20] MEDS: ATORVASTATIN 40 MG TAB PO (20:39)
[2017-10-20] MEDS: SENNA TAB PO (20:40)
[2017-10-21] MEDS: PANTOPRAZOLE (EC) 40 MG TAB PO (05:43)
[2017-10-21] MEDS: DOCUSATE SODIUM 100 MG CAP PO ×2 (08:20→20:14)
[2017-10-21] MEDS: PAROXETINE 10 MG TAB PO (08:20)
[2017-10-21] MEDS: SALMETEROL/FLUTICASONE 250/50 INHA INH ×2 (08:20→20:14)
[2017-10-21] MEDS: DORZOLAMIDE 2% 10 ML OPH BOTH EYES ×2 (08:20→20:14)
[2017-10-21] MEDS: LORATADINE 10 MG TAB PO (08:20)
[2017-10-21] MEDS: MULTIVITAMINS/MINERALS TAB PO (08:20)
[2017-10-21] MEDS: AMLODIPINE 2.5 MG TAB PO (08:20)
[2017-10-21] MEDS: predniSONE 10 MG TAB PO (08:20)
[2017-10-21] MEDS: ATORVASTATIN 40 MG TAB PO (20:14)
[2017-10-21] MEDS: SENNA TAB PO (20:14)
[2017-10-22] MEDS: PANTOPRAZOLE (EC) 40 MG TAB PO (06:38)
[2017-10-22] MEDS: DORZOLAMIDE 2% 10 ML OPH BOTH EYES ×2 (09:00→21:15)
[2017-10-22] MEDS: MULTIVITAMINS/MINERALS TAB PO (09:00)
[2017-10-22] MEDS: DOCUSATE SODIUM 100 MG CAP PO ×2 (10:34→21:15)
[2017-10-22] MEDS: SALMETEROL/FLUTICASONE 250/50 INHA INH ×2 (10:34→21:15)
[2017-10-22] MEDS: PAROXETINE 10 MG TAB PO (10:34)
[2017-10-22] MEDS: predniSONE 10 MG TAB PO (10:34)
[2017-10-22] MEDS: LORATADINE 10 MG TAB PO (10:35)
[2017-10-22] MEDS: AMLODIPINE 2.5 MG TAB PO (10:35)
[2017-10-22] MEDS: SENNA TAB PO (21:15)
[2017-10-22] MEDS: ATORVASTATIN 40 MG TAB PO (21:15)
[2017-10-23] MEDS: PANTOPRAZOLE (EC) 40 MG TAB PO (05:55)
[2017-10-23] MEDS: SALMETEROL/FLUTICASONE 250/50 INHA INH (09:06)
[2017-10-23] MEDS: DOCUSATE SODIUM 100 MG CAP PO (09:07)
[2017-10-23] MEDS: DORZOLAMIDE 2% 10 ML OPH BOTH EYES (09:07)
[2017-10-23] MEDS: PAROXETINE 10 MG TAB PO (09:08)
[2017-10-23] MEDS: MULTIVITAMINS/MINERALS TAB PO (09:10)
[2017-10-23] MEDS: LORATADINE 10 MG TAB PO (09:11)
[2017-10-23] MEDS: AMLODIPINE 2.5 MG TAB PO (09:11)
== END 2017-10-23 11:35 | disposition home or self-care (01) | DRG 948 ==
LOC: VRC 20:27
DX: R53.81 Other malaise (principal); J44.0 Chronic obstructive pulmonary disease with (acute) lower respiratory infection; F03.90 Unspecified dementia, unspecified severity, without behavioral disturbance, psychotic disturbance, mood disturbance, and anxiety; J44.1 Chronic obstructive pulmonary disease with (acute) exacerbation; F09 Unspecified mental disorder due to known physiological condition; I10 Essential (primary) hypertension; M19.91 Primary osteoarthritis, unspecified site; F32.9 Major depressive disorder, single episode, unspecified; J20.9 Acute bronchitis, unspecified; R91.8 Other nonspecific abnormal finding of lung field; H40.9 Unspecified glaucoma; R33.9 Retention of urine, unspecified; Z87.440 Personal history of urinary (tract) infections
CPT/HCPCS: 74230; 80048; 80053; 81003; 85025; 87081; 87086; 92507; 92523; 92526; 92611; 97110; 97112; 97116; 97150; 97163; 97530; 97535

== ENCOUNTER 2017-11-03 11:40 | Inpatient (IN) | payer MEDICARE, BC ==
[2017-11-03] MEDS: IPRATROPIUM (NEB) 0.5 MG/2.5 ML AMP INH (11:59)
[2017-11-03] MEDS: ALBUTEROL 0.5% (NEB) 2.5 MG/0.5 ML AMP INH (11:59)
[2017-11-03] MEDS: METHYLPREDNISOLONE 125 MG INJ IV (12:01)
[2017-11-03 12:30] LABS: ADD MAN DIFF? YES; HEMATOCRIT 37.6 % (37.0-47.0); HEMOGLOBIN 12.2 g/dl (12.0-16.0); MEAN CORPUSCULAR HEMOGLOBIN 29.3 pg (29.0-33.0); MEAN CORPUSCULAR HGB CONC 32.4 g/dl (32.0-37.0); MEAN CORPUSCULAR VOLUME 90.4 fl (82.0-101.0); MEAN PLATELET VOLUME 9.2 fl (7.4-10.4); PLATELET COUNT 193 10^3/UL (140-415); POSITIVE DIFF @See below; RED BLOOD COUNT 4.16 10^6/ul (4.20-5.40); RED CELL DISTRIBUTION WIDTH 14.6 % (11.5-14.5)
[2017-11-03 12:30] LABS: WHITE BLOOD COUNT 10.3 10^3/ul (4.8-10.8)
[2017-11-03] MEDS ORDERED: ACETAMINOPHEN 325 MG TAB PO ×2 (12:30→16:30)
[2017-11-03] MEDS ORDERED: ONDANSETRON 4 MG INJ IV (12:30)
[2017-11-03 12:47] LABS: ALANINE AMINOTRANSFERASE 65 IU/L (13-69); ALBUMIN/GLOBULIN RATIO 1.03; ALKALINE PHOSPHATASE 90 IU/L (42-121); ANION GAP 11 (8-16); ASPARTATE AMINO TRANSFERASE 31 IU/L (15-46); BILIRUBIN,INDIRECT 0.5 mg/dl (0-1.1); BILIRUBIN,TOTAL 0.5 mg/dl (0.2-1.3); BLOOD UREA NITROGEN 13 mg/dl (7-20); CALCIUM 9.5 mg/dl (8.4-10.2); CARBON DIOXIDE 28 mmol/L (21-31); CHLORIDE 105 mmol/L (97-110); CREATININE 0.73 mg/dl (0.44-1.00); GLUCOSE 127 mg/dl (70-220); POTASSIUM 3.1 mmol/L (3.5-5.1); SODIUM 141 mmol/L (135-144); TOTAL PROTEIN 5.9 g/dl (6.1-8.1)
[2017-11-03 13:04] LABS: TROPONIN-I 0.225 ng/ml (0.00-0.12)
[2017-11-03 13:09] LABS: ANISOCYTOSIS 1+ (0-0); BAND NEUTROPHILS #M 1.8 10^3/ul (0.0-0.6); BAND NEUTROPHILS % (M) 18 % (0-4); LYMPHOCYTES #M 0.3 10^3/ul (0.8-2.9); LYMPHOCYTES % (M) 3 % (15-51); MICROCYTOSIS 1+ (0-0); MONOCYTE #M 0.9 10^3/ul (0.3-0.9); MONOCYTES % (M) 9 % (0-11); PLATELET ESTIMATE NORMAL; POIKILOCYTOSIS 1+ (0-0); POLYCHROMASIA 3+ (0-0); REACTIVE LYMPHOCYTES #M 0.7 10^3/ul (0.0-0.0); REACTIVE LYMPHOCYTES% (M) 7 % (0-0); SEG NEUT #M 6.7 10^3/ul (1.6-7.5); SEGMENTED NEUTROPHILS (M) % 63 % (39-77); SMUDGE%M 3 % (0-0)
[2017-11-03] MEDS: ASPIRIN 325 MG TAB PO (13:21)
[2017-11-03 16:30] LABS: ADD UMIC YES; UR ASCORBIC ACID NEGATIVE (NEGATIVE); UR BACTERIA FEW /HPF (NONE SEEN); UR BILIRUBIN (Dip) 1+ mg/dL (NEGATIVE); UR BLOOD (Dip) NEGATIVE (NEGATIVE); UR CLARITY SLIGHTLY CLOUDY (CLEAR); UR COLOR AMBER (YELLOW); UR GLUCOSE (Dip) NEGATIVE (NEGATIVE); UR KETONES (Dip) NEGATIVE (NEGATIVE); UR LEUKOCYTE ESTERASE (Dip) TRACE Leu/ul (NEGATIVE); UR MUCUS MANY /HPF (NONE SEEN); UR NITRITE (Dip) NEGATIVE (NEGATIVE); UR RBC 5 /HPF (0-5); UR SPECIFIC GRAVITY (Dip) 1.024 (1.003-1.030); UR TOTAL PROTEIN (Dip) 2+ mg/dl (NEGATIVE); UR UROBILINOGEN (Dip) 2+ mg/dL (NEGATIVE); UR WBC 14 /HPF (0-5)
[2017-11-03] MEDS: D5-0.2 NACL + KCL 20 MEQ 1,000 ML IV (16:46)
[2017-11-03] MEDS: LEVOFLOXACIN 500MG/D5W (PMX) 100 ML IVPB (16:46)
[2017-11-03] MEDS: ALBUTEROL 0.083% (NEB) 2.5 MG/3 ML AMP HHN ×2 (17:27→21:13)
[2017-11-03 19:16] LABS: MAGNESIUM 1.7 mg/dl (1.7-2.5)
[2017-11-03 19:25] LABS: B-TYPE NATRIURETIC PEPTIDE 2430 PG/ML (0-450)
[2017-11-03] MEDS: DILTIAZEM (CD) 180 MG CAP PO (19:41)
[2017-11-03] MEDS: POTASSIUM CHLORIDE (SR) 20 MEQ TAB PO (19:47)
[2017-11-03] MEDS: ATORVASTATIN 40 MG TAB PO (21:29)
[2017-11-03] MEDS: METHYLPREDNISOLONE 40 MG INJ IV (21:30)
[2017-11-03] MEDS: PAROXETINE 10 MG TAB PO (21:31)
[2017-11-03] MEDS: DORZOLAMIDE 2% 10 ML OPH BOTH EYES (21:32)
[2017-11-04] MEDS: ALBUTEROL 0.083% (NEB) 2.5 MG/3 ML AMP HHN ×6 (01:00→21:50)
[2017-11-04] MEDS: D5-0.2 NACL + KCL 20 MEQ 1,000 ML IV (05:50)
[2017-11-04] MEDS: METHYLPREDNISOLONE 40 MG INJ IV ×3 (05:54→21:04)
[2017-11-04] MEDS: PANTOPRAZOLE (EC) 40 MG TAB PO (07:30)
[2017-11-04 07:37] LABS: ADD MAN DIFF? NO
[2017-11-04 07:43] LABS: WHITE BLOOD COUNT 11.5 10^3/ul (4.8-10.8)
[2017-11-04 07:43] LABS: BASOPHILS % 0.2 % (0.0-2.0); HEMATOCRIT 34.7 % (37.0-47.0); HEMOGLOBIN 11.1 g/dl (12.0-16.0); LYMPHOCYTES # 0.7 10^3/ul (0.8-2.9); LYMPHOCYTES % 6.4 % (15.0-51.0); MEAN CORPUSCULAR HEMOGLOBIN 29.2 pg (29.0-33.0); MEAN CORPUSCULAR VOLUME 91.3 fl (82.0-101.0); MEAN PLATELET VOLUME 9.4 fl (7.4-10.4); MONOCYTE # 0.3 10^3/ul (0.3-0.9); MONOCYTES % 2.5 % (0.0-11.0); NEUTROPHIL # 10.3 10^3/ul (1.6-7.5); NEUTROPHILS % 89.5 % (39.0-77.0); PLATELET COUNT 173 10^3/UL (140-415); RED CELL DISTRIBUTION WIDTH 14.4 % (11.5-14.5)
[2017-11-04 08:05] LABS: ALANINE AMINOTRANSFERASE 59 IU/L (13-69); ALBUMIN 2.8 g/dl (3.3-4.9); ALKALINE PHOSPHATASE 77 IU/L (42-121); ANION GAP 11 (8-16); ASPARTATE AMINO TRANSFERASE 25 IU/L (15-46); BILIRUBIN,INDIRECT 0.1 mg/dl (0-1.1); BILIRUBIN,TOTAL 0.1 mg/dl (0.2-1.3); BLOOD UREA NITROGEN 17 mg/dl (7-20); CALCIUM 9.6 mg/dl (8.4-10.2); CARBON DIOXIDE 26 mmol/L (21-31); CHLORIDE 105 mmol/L (97-110); CREATININE 0.75 mg/dl (0.44-1.00); GLUCOSE 182 mg/dl (70-220); MAGNESIUM 1.7 mg/dl (1.7-2.5); POTASSIUM 4.1 mmol/L (3.5-5.1); SODIUM 138 mmol/L (135-144); TOTAL PROTEIN 5.6 g/dl (6.1-8.1)
[2017-11-04 08:17] LABS: TROPONIN-I 0.095 ng/ml (0.00-0.12)
[2017-11-04] MEDS: ASPIRIN (EC) 81 MG TAB PO (08:49)
[2017-11-04] MEDS: DORZOLAMIDE 2% 10 ML OPH BOTH EYES ×2 (08:50→20:58)
[2017-11-04] MEDS: DILTIAZEM (CD) 180 MG CAP PO (08:50)
[2017-11-04] MEDS: LORATADINE 10 MG TAB PO (08:55)
[2017-11-04] MEDS ORDERED: AMLODIPINE 2.5 MG TAB PO (09:00)
[2017-11-04] MEDS: MAGNESIUM SULFATE 2 GM/50 ML 50 ML IVPB (10:30)
[2017-11-04] MEDS ORDERED: VANCOMYCIN IV PER PHARMACY XX (10:30)
[2017-11-04] MEDS: VANCOMYCIN 1.5 GM in DEXTROSE 5% 500 ML IVPB (12:30)
[2017-11-04] MEDS: CEFEPIME 1GM/50 ML (PMX) 50 ML IVPB (15:00)
[2017-11-04] MEDS ORDERED: LEVOFLOXACIN 250MG/D5W (PMX) 50 ML IVPB (18:30)
[2017-11-04] MEDS: ATORVASTATIN 40 MG TAB PO (20:58)
[2017-11-04] MEDS: PAROXETINE 10 MG TAB PO (20:58)
[2017-11-05] MEDS: ALBUTEROL 0.083% (NEB) 2.5 MG/3 ML AMP HHN ×6 (01:00→21:00)
[2017-11-05] MEDS: METHYLPREDNISOLONE 40 MG INJ IV ×3 (05:11→21:29)
[2017-11-05] MEDS: LORATADINE 10 MG TAB PO (09:48)
[2017-11-05] MEDS: PANTOPRAZOLE (EC) 40 MG TAB PO (09:48)
[2017-11-05] MEDS: DORZOLAMIDE 2% 10 ML OPH BOTH EYES ×2 (09:48→20:40)
[2017-11-05] MEDS: ASPIRIN (EC) 81 MG TAB PO (09:48)
[2017-11-05] MEDS: DILTIAZEM (CD) 180 MG CAP PO (09:49)
[2017-11-05] MEDS: MAGNESIUM SULFATE 3 GM in DEXTROSE 5% 100 ML IVPB (12:44)
[2017-11-05] MEDS: VANCOMYCIN 750 MG in DEXTROSE 5% 150 ML IVPB (14:16)
[2017-11-05] MEDS: CEFEPIME 1GM/50 ML (PMX) 50 ML IVPB (14:19)
[2017-11-05] MEDS: ATORVASTATIN 40 MG TAB PO (20:40)
[2017-11-05] MEDS: PAROXETINE 10 MG TAB PO (20:43)
[2017-11-06] MEDS ORDERED: VANCOMYCIN 1.25 GM in SOD CHLORIDE 0.45% 250 ML IVPB
[2017-11-06] MEDS: ALBUTEROL 0.083% (NEB) 2.5 MG/3 ML AMP HHN ×6 (01:00→22:06)
[2017-11-06] MEDS: METHYLPREDNISOLONE 40 MG INJ IV ×3 (05:47→21:57)
[2017-11-06] MEDS: PANTOPRAZOLE (EC) 40 MG TAB PO (06:54)
[2017-11-06 08:38] LABS: ADD MAN DIFF? NO
[2017-11-06 08:57] LABS: WHITE BLOOD COUNT 14.9 10^3/ul (4.8-10.8)
[2017-11-06 08:57] LABS: ABNORMAL IP MESSAGE 1; BASOPHILS % 0.1 % (0.0-2.0); HEMATOCRIT 34.1 % (37.0-47.0); HEMOGLOBIN 11.1 g/dl (12.0-16.0); LYMPHOCYTES # 0.5 10^3/ul (0.8-2.9); LYMPHOCYTES % 3.3 % (15.0-51.0); MEAN CORPUSCULAR HEMOGLOBIN 29.3 pg (29.0-33.0); MEAN CORPUSCULAR HGB CONC 32.6 g/dl (32.0-37.0); MEAN PLATELET VOLUME 9.8 fl (7.4-10.4); MONOCYTE # 0.2 10^3/ul (0.3-0.9); MONOCYTES % 1.5 % (0.0-11.0); NEUTROPHIL # 13.9 10^3/ul (1.6-7.5); PLATELET COUNT 195 10^3/UL (140-415); RED BLOOD COUNT 3.79 10^6/ul (4.20-5.40); RED CELL DISTRIBUTION WIDTH 14.7 % (11.5-14.5)
[2017-11-06 08:58] LABS: POSITIVE DIFF @See below
[2017-11-06] MEDS: LORATADINE 10 MG TAB PO (09:18)
[2017-11-06] MEDS: BENZONATATE 100 MG CAP PO ×2 (09:18→14:42)
[2017-11-06] MEDS: ASPIRIN (EC) 81 MG TAB PO (09:18)
[2017-11-06] MEDS: DORZOLAMIDE 2% 10 ML OPH BOTH EYES ×2 (09:18→21:00)
[2017-11-06] MEDS: DILTIAZEM (CD) 180 MG CAP PO (09:19)
[2017-11-06 09:22] LABS: ANION GAP 7 (8-16); BLOOD UREA NITROGEN 28 mg/dl (7-20); CALCIUM 8.9 mg/dl (8.4-10.2); CARBON DIOXIDE 30 mmol/L (21-31); CHLORIDE 102 mmol/L (97-110); CREATININE 0.88 mg/dl (0.44-1.00); GLUCOSE 171 mg/dl (70-220); MAGNESIUM 2.5 mg/dl (1.7-2.5); POTASSIUM 4.3 mmol/L (3.5-5.1); SODIUM 135 mmol/L (135-144)
[2017-11-06] MEDS: VANCOMYCIN 750 MG in DEXTROSE 5% 150 ML IVPB (11:47)
[2017-11-06] MEDS: MAGNESIUM CITRATE 300 ML BTL PO (14:42)
[2017-11-06] MEDS: DOCUSATE SODIUM 100 MG CAP PO (14:42)
[2017-11-06] MEDS: CEFEPIME 1GM/50 ML (PMX) 50 ML IVPB (14:43)
[2017-11-06] MEDS: ENOXAPARIN 30 MG/0.3 ML SYG SC (14:44)
[2017-11-06] MEDS: ATORVASTATIN 40 MG TAB PO (21:56)
[2017-11-06] MEDS: PAROXETINE 10 MG TAB PO (21:56)
[2017-11-07] MEDS: ALBUTEROL 0.083% (NEB) 2.5 MG/3 ML AMP HHN ×6 (01:00→20:10)
[2017-11-07] MEDS: METHYLPREDNISOLONE 40 MG INJ IV ×3 (05:31→21:35)
[2017-11-07] MEDS: LORATADINE 10 MG TAB PO (08:50)
[2017-11-07] MEDS: PANTOPRAZOLE (EC) 40 MG TAB PO (08:50)
[2017-11-07] MEDS: ASPIRIN (EC) 81 MG TAB PO (08:50)
[2017-11-07] MEDS: DILTIAZEM (CD) 180 MG CAP PO (08:50)
[2017-11-07] MEDS: DORZOLAMIDE 2% 10 ML OPH BOTH EYES ×2 (08:51→21:07)
[2017-11-07] MEDS: ENOXAPARIN 30 MG/0.3 ML SYG SC (08:52)
[2017-11-07] MEDS: CEFEPIME 1GM/50 ML (PMX) 50 ML IVPB (14:32)
[2017-11-07] MEDS: ATORVASTATIN 40 MG TAB PO (21:07)
[2017-11-07] MEDS: PAROXETINE 10 MG TAB PO (21:07)
[2017-11-08] MEDS: METHYLPREDNISOLONE 40 MG INJ IV (06:35)
[2017-11-08] MEDS: PANTOPRAZOLE (EC) 40 MG TAB PO (06:35)
[2017-11-08] MEDS: DORZOLAMIDE 2% 10 ML OPH BOTH EYES ×2 (08:32→20:59)
[2017-11-08] MEDS: LORATADINE 10 MG TAB PO (08:33)
[2017-11-08] MEDS: DILTIAZEM (CD) 180 MG CAP PO (08:33)
[2017-11-08] MEDS: ASPIRIN (EC) 81 MG TAB PO (08:33)
[2017-11-08] MEDS: ENOXAPARIN 30 MG/0.3 ML SYG SC (08:34)
[2017-11-08] MEDS: DOCUSATE SODIUM 100 MG CAP PO (09:41)
[2017-11-08] MEDS: ALBUTEROL 0.083% (NEB) 2.5 MG/3 ML AMP HHN ×4 (10:09→21:19)
[2017-11-08] MEDS: predniSONE 20 MG TAB PO (11:20)
[2017-11-08] MEDS: MAGNESIUM CITRATE 300 ML BTL PO (11:20)
[2017-11-08] MEDS: CEFEPIME 1GM/50 ML (PMX) 50 ML IVPB (14:07)
[2017-11-08] MEDS: PAROXETINE 10 MG TAB PO (20:58)
[2017-11-08] MEDS: ATORVASTATIN 40 MG TAB PO (20:58)
[2017-11-09] MEDS: ENOXAPARIN 30 MG/0.3 ML SYG SC (08:16)
[2017-11-09] MEDS: DILTIAZEM (CD) 180 MG CAP PO (08:17)
[2017-11-09] MEDS: ASPIRIN (EC) 81 MG TAB PO (08:17)
[2017-11-09] MEDS: predniSONE 20 MG TAB PO (08:17)
[2017-11-09] MEDS: LORATADINE 10 MG TAB PO (08:17)
[2017-11-09] MEDS: DORZOLAMIDE 2% 10 ML OPH BOTH EYES ×2 (08:17→20:41)
[2017-11-09] MEDS: PANTOPRAZOLE (EC) 40 MG TAB PO (08:18)
[2017-11-09] MEDS: ALBUTEROL 0.083% (NEB) 2.5 MG/3 ML AMP HHN ×4 (10:01→21:47)
[2017-11-09] MEDS: CEFEPIME 1GM/50 ML (PMX) 50 ML IVPB (13:14)
[2017-11-09 14:16] LABS: ADD MAN DIFF? NO
[2017-11-09 14:22] LABS: WHITE BLOOD COUNT 19.2 10^3/ul (4.8-10.8)
[2017-11-09 14:22] LABS: ABNORMAL IP MESSAGE 1; BASOPHILS % 0.2 % (0.0-2.0); HEMATOCRIT 40.2 % (37.0-47.0); HEMOGLOBIN 12.9 g/dl (12.0-16.0); LYMPHOCYTES # 0.5 10^3/ul (0.8-2.9); LYMPHOCYTES % 2.4 % (15.0-51.0); MEAN CORPUSCULAR HEMOGLOBIN 29.2 pg (29.0-33.0); MEAN CORPUSCULAR HGB CONC 32.1 g/dl (32.0-37.0); MEAN PLATELET VOLUME 9.9 fl (7.4-10.4); MONOCYTE # 0.6 10^3/ul (0.3-0.9); MONOCYTES % 3.3 % (0.0-11.0); NEUTROPHIL # 17.3 10^3/ul (1.6-7.5); NEUTROPHILS % 89.8 % (39.0-77.0); PLATELET COUNT 233 10^3/UL (140-415); RED BLOOD COUNT 4.42 10^6/ul (4.20-5.40); RED CELL DISTRIBUTION WIDTH 14.7 % (11.5-14.5)
[2017-11-09 14:28] LABS: POSITIVE DIFF @See below
[2017-11-09 14:41] LABS: ANION GAP 11 (8-16); BLOOD UREA NITROGEN 34 mg/dl (7-20); CALCIUM 9.1 mg/dl (8.4-10.2); CARBON DIOXIDE 29 mmol/L (21-31); CHLORIDE 103 mmol/L (97-110); CREATININE 0.65 mg/dl (0.44-1.00); GLUCOSE 187 mg/dl (70-220); POTASSIUM 4.6 mmol/L (3.5-5.1); SODIUM 138 mmol/L (135-144)
[2017-11-09] MEDS: ATORVASTATIN 40 MG TAB PO (20:41)
[2017-11-09] MEDS: PAROXETINE 10 MG TAB PO (20:41)
[2017-11-10] MEDS: PANTOPRAZOLE (EC) 40 MG TAB PO (06:35)
[2017-11-10] MEDS: DILTIAZEM (CD) 180 MG CAP PO (08:21)
[2017-11-10] MEDS: ASPIRIN (EC) 81 MG TAB PO (08:21)
[2017-11-10] MEDS: DORZOLAMIDE 2% 10 ML OPH BOTH EYES ×2 (08:21→21:45)
[2017-11-10] MEDS: predniSONE 20 MG TAB PO (08:21)
[2017-11-10] MEDS: LORATADINE 10 MG TAB PO (08:21)
[2017-11-10] MEDS: ENOXAPARIN 30 MG/0.3 ML SYG SC (08:23)
[2017-11-10] MEDS: ALBUTEROL 0.083% (NEB) 2.5 MG/3 ML AMP HHN ×4 (09:46→20:36)
[2017-11-10] MEDS: CEFEPIME 1GM/50 ML (PMX) 50 ML IVPB (13:11)
[2017-11-10] MEDS: DOCUSATE SODIUM 100 MG CAP PO (13:11)
[2017-11-10] MEDS: BISACODYL 10 MG SUPP PR (18:55)
[2017-11-10] MEDS: PAROXETINE 10 MG TAB PO (21:45)
[2017-11-10] MEDS: ATORVASTATIN 40 MG TAB PO (21:45)
[2017-11-11] MEDS: PANTOPRAZOLE (EC) 40 MG TAB PO (06:43)
[2017-11-11] MEDS: ALBUTEROL 0.083% (NEB) 2.5 MG/3 ML AMP HHN ×4 (07:33→21:20)
[2017-11-11] MEDS: DORZOLAMIDE 2% 10 ML OPH BOTH EYES ×2 (07:58→22:21)
[2017-11-11] MEDS: ENOXAPARIN 30 MG/0.3 ML SYG SC (07:58)
[2017-11-11] MEDS: DILTIAZEM (CD) 180 MG CAP PO (07:59)
[2017-11-11] MEDS: ASPIRIN (EC) 81 MG TAB PO (07:59)
[2017-11-11] MEDS: LORATADINE 10 MG TAB PO (07:59)
[2017-11-11] MEDS: predniSONE 20 MG TAB PO (07:59)
[2017-11-11] MEDS: DOCUSATE SODIUM 100 MG CAP PO (07:59)
[2017-11-11] MEDS: ACETAMINOPHEN 500 MG TAB PO (08:59)
[2017-11-11] MEDS: CEFEPIME 1GM/50 ML (PMX) 50 ML IVPB (13:30)
[2017-11-11 16:56] LABS: WHITE BLOOD COUNT 13.4 10^3/ul (4.8-10.8)
[2017-11-11 16:56] LABS: ABNORMAL IP MESSAGE 1; HEMATOCRIT 36.6 % (37.0-47.0); MEAN CORPUSCULAR HEMOGLOBIN 29.7 pg (29.0-33.0); MEAN CORPUSCULAR HGB CONC 32.8 g/dl (32.0-37.0); MEAN CORPUSCULAR VOLUME 90.6 fl (82.0-101.0); MEAN PLATELET VOLUME 9.6 fl (7.4-10.4); PLATELET COUNT 159 10^3/UL (140-415); RED BLOOD COUNT 4.04 10^6/ul (4.20-5.40); RED CELL DISTRIBUTION WIDTH 14.9 % (11.5-14.5)
[2017-11-11 16:57] LABS: POSITIVE DIFF @See below
[2017-11-11 16:58] LABS: ADD MAN DIFF? YES
[2017-11-11 17:18] LABS: ANION GAP 9 (8-16); BLOOD UREA NITROGEN 31 mg/dl (7-20); CALCIUM 8.8 mg/dl (8.4-10.2); CARBON DIOXIDE 27 mmol/L (21-31); CHLORIDE 106 mmol/L (97-110); CREATININE 0.68 mg/dl (0.44-1.00); GLUCOSE 208 mg/dl (70-220); SODIUM 138 mmol/L (135-144)
[2017-11-11 17:26] LABS: LYMPHOCYTES #M 0.5 10^3/ul (0.8-2.9); LYMPHOCYTES % (M) 4 % (15-51); PLATELET ESTIMATE NORMAL; SEGMENTED NEUTROPHILS (M) % 96 % (39-77); SMUDGE%M 23 % (0-0)
[2017-11-11] MEDS: PAROXETINE 10 MG TAB PO (22:20)
[2017-11-11] MEDS: ATORVASTATIN 40 MG TAB PO (22:20)
[2017-11-12] MEDS: DORZOLAMIDE 2% 10 ML OPH BOTH EYES ×2 (09:05→21:00)
[2017-11-12] MEDS: predniSONE 5 MG TAB PO (09:06)
[2017-11-12] MEDS: LORATADINE 10 MG TAB PO (09:06)
[2017-11-12] MEDS: ASPIRIN (EC) 81 MG TAB PO (09:09)
[2017-11-12] MEDS: PANTOPRAZOLE (EC) 40 MG TAB PO (09:09)
[2017-11-12] MEDS: DILTIAZEM (CD) 180 MG CAP PO (09:09)
[2017-11-12] MEDS: ENOXAPARIN 30 MG/0.3 ML SYG SC (09:15)
[2017-11-12] MEDS: ALBUTEROL 0.083% (NEB) 2.5 MG/3 ML AMP HHN ×4 (09:45→21:31)
[2017-11-12 12:11] LABS: ADD UMIC YES; UR ASCORBIC ACID NEGATIVE (NEGATIVE); UR BACTERIA FEW /HPF (NONE SEEN); UR BILIRUBIN (Dip) NEGATIVE (NEGATIVE); UR BLOOD (Dip) NEGATIVE (NEGATIVE); UR CLARITY CLEAR (CLEAR); UR COLOR YELLOW (YELLOW); UR GLUCOSE (Dip) 1+ mg/dL (NEGATIVE); UR KETONES (Dip) NEGATIVE (NEGATIVE); UR LEUKOCYTE ESTERASE (Dip) NEGATIVE Leu/ul (NEGATIVE); UR NITRITE (Dip) NEGATIVE (NEGATIVE); UR RBC 1 /HPF (0-5); UR TOTAL PROTEIN (Dip) 1+ mg/dl (NEGATIVE); UR UROBILINOGEN (Dip) NEGATIVE (NEGATIVE); UR WBC 3 /HPF (0-5)
[2017-11-12] MEDS: PAROXETINE 10 MG TAB PO (21:00)
[2017-11-12] MEDS: ATORVASTATIN 40 MG TAB PO (22:18)
[2017-11-13] MEDS: PANTOPRAZOLE (EC) 40 MG TAB PO (06:10)
[2017-11-13 08:31] LABS: ADD MAN DIFF? NO
[2017-11-13 08:37] LABS: ABNORMAL IP MESSAGE 1; BASOPHILS % 0.1 % (0.0-2.0); HEMATOCRIT 35.8 % (37.0-47.0); HEMOGLOBIN 11.6 g/dl (12.0-16.0); LYMPHOCYTES # 0.5 10^3/ul (0.8-2.9); LYMPHOCYTES % 3.5 % (15.0-51.0); MEAN CORPUSCULAR HEMOGLOBIN 29.4 pg (29.0-33.0); MEAN CORPUSCULAR HGB CONC 32.4 g/dl (32.0-37.0); MEAN CORPUSCULAR VOLUME 90.6 fl (82.0-101.0); MEAN PLATELET VOLUME 10.7 fl (7.4-10.4); MONOCYTE # 0.7 10^3/ul (0.3-0.9); MONOCYTES % 4.5 % (0.0-11.0); NEUTROPHIL # 13.3 10^3/ul (1.6-7.5); NEUTROPHILS % 88.6 % (39.0-77.0); PLATELET COUNT 119 10^3/UL (140-415); RED BLOOD COUNT 3.95 10^6/ul (4.20-5.40); RED CELL DISTRIBUTION WIDTH 15.1 % (11.5-14.5)
[2017-11-13] MEDS: LORATADINE 10 MG TAB PO (08:45)
[2017-11-13] MEDS: predniSONE 5 MG TAB PO (08:45)
[2017-11-13] MEDS: ASPIRIN (EC) 81 MG TAB PO (08:45)
[2017-11-13] MEDS: DILTIAZEM (CD) 180 MG CAP PO (08:46)
[2017-11-13] MEDS: DORZOLAMIDE 2% 10 ML OPH BOTH EYES ×2 (08:46→20:52)
[2017-11-13] MEDS: ENOXAPARIN 30 MG/0.3 ML SYG SC (08:49)
[2017-11-13 08:50] LABS: POSITIVE DIFF @See below
[2017-11-13 08:53] LABS: ANION GAP 9 (8-16); BLOOD UREA NITROGEN 24 mg/dl (7-20); CALCIUM 8.3 mg/dl (8.4-10.2); CARBON DIOXIDE 30 mmol/L (21-31); CHLORIDE 105 mmol/L (97-110); CREATININE 0.63 mg/dl (0.44-1.00); GLUCOSE 138 mg/dl (70-220); POTASSIUM 3.5 mmol/L (3.5-5.1); SODIUM 140 mmol/L (135-144)
[2017-11-13] MEDS: ALBUTEROL 0.083% (NEB) 2.5 MG/3 ML AMP HHN ×4 (10:05→20:22)
[2017-11-13 15:15] LABS: ADD UMIC YES; UR ASCORBIC ACID NEGATIVE (NEGATIVE); UR BILIRUBIN (Dip) NEGATIVE (NEGATIVE); UR BLOOD (Dip) NEGATIVE (NEGATIVE); UR CLARITY CLEAR (CLEAR); UR COLOR YELLOW (YELLOW); UR GLUCOSE (Dip) 1+ mg/dL (NEGATIVE); UR KETONES (Dip) NEGATIVE (NEGATIVE); UR LEUKOCYTE ESTERASE (Dip) NEGATIVE Leu/ul (NEGATIVE); UR MUCUS FEW /HPF (NONE SEEN); UR NITRITE (Dip) NEGATIVE (NEGATIVE); UR RBC 2 /HPF (0-5); UR SPECIFIC GRAVITY (Dip) 1.025 (1.003-1.030); UR TOTAL PROTEIN (Dip) 1+ mg/dl (NEGATIVE); UR UROBILINOGEN (Dip) NEGATIVE (NEGATIVE); UR WBC 1 /HPF (0-5)
[2017-11-13] MEDS: PAROXETINE 10 MG TAB PO (20:52)
[2017-11-13] MEDS: ATORVASTATIN 40 MG TAB PO (20:52)
[2017-11-14] MEDS: PANTOPRAZOLE (EC) 40 MG TAB PO (07:24)
[2017-11-14 08:29] LABS: ADD MAN DIFF? NO
[2017-11-14 08:36] LABS: WHITE BLOOD COUNT 15.8 10^3/ul (4.8-10.8)
[2017-11-14 08:36] LABS: ABNORMAL IP MESSAGE 1; BASOPHILS % 0.2 % (0.0-2.0); HEMATOCRIT 36.7 % (37.0-47.0); LYMPHOCYTES # 0.5 10^3/ul (0.8-2.9); LYMPHOCYTES % 2.8 % (15.0-51.0); MEAN CORPUSCULAR HEMOGLOBIN 29.6 pg (29.0-33.0); MEAN CORPUSCULAR HGB CONC 32.7 g/dl (32.0-37.0); MEAN CORPUSCULAR VOLUME 90.4 fl (82.0-101.0); MEAN PLATELET VOLUME 10.6 fl (7.4-10.4); MONOCYTE # 0.7 10^3/ul (0.3-0.9); MONOCYTES % 4.7 % (0.0-11.0); NEUTROPHIL # 14.1 10^3/ul (1.6-7.5); PLATELET COUNT 117 10^3/UL (140-415); RED BLOOD COUNT 4.06 10^6/ul (4.20-5.40); RED CELL DISTRIBUTION WIDTH 15.2 % (11.5-14.5)
[2017-11-14 08:43] LABS: POSITIVE DIFF @See below
[2017-11-14 08:57] LABS: C-REACTIVE PROTEIN 0.6 mg/dl (0.0-0.9)
[2017-11-14 08:57] LABS: LACTATE DEHYDROGENASE 624 IU/L (313-618)
[2017-11-14] MEDS: ALBUTEROL 0.083% (NEB) 2.5 MG/3 ML AMP HHN ×4 (09:00→20:39)
[2017-11-14 09:02] LABS: ANION GAP 7 (8-16); BLOOD UREA NITROGEN 24 mg/dl (7-20); CALCIUM 8.7 mg/dl (8.4-10.2); CARBON DIOXIDE 31 mmol/L (21-31); CHLORIDE 106 mmol/L (97-110); GLUCOSE 141 mg/dl (70-220); MAGNESIUM 2.2 mg/dl (1.7-2.5); POTASSIUM 3.5 mmol/L (3.5-5.1); SODIUM 140 mmol/L (135-144)
[2017-11-14] MEDS: LORATADINE 10 MG TAB PO (10:16)
[2017-11-14] MEDS: DORZOLAMIDE 2% 10 ML OPH BOTH EYES ×2 (10:16→20:40)
[2017-11-14] MEDS: ASPIRIN (EC) 81 MG TAB PO (10:17)
[2017-11-14] MEDS: predniSONE 10 MG TAB PO (10:17)
[2017-11-14] MEDS: ENOXAPARIN 30 MG/0.3 ML SYG SC (10:18)
[2017-11-14] MEDS: DILTIAZEM (CD) 180 MG CAP PO (10:23)
[2017-11-14 12:47] LABS: ERYTHROCYTE SEDIMENTATION RATE 2 mm/Hr (0-30)
[2017-11-14] MEDS: ENOXAPARIN 60 MG/0.6 ML SYG SC ×3 (13:30→20:48)
[2017-11-14 15:19] LABS: RHEUMATOID FACTOR POSITIVE (NEGATIVE)
[2017-11-14] MEDS: ATORVASTATIN 40 MG TAB PO (20:40)
[2017-11-14] MEDS: PAROXETINE 10 MG TAB PO (20:40)
[2017-11-15] MEDS: ALBUTEROL 0.083% (NEB) 2.5 MG/3 ML AMP HHN ×4 (08:26→21:58)
[2017-11-15 09:20] LABS: ADD MAN DIFF? NO
[2017-11-15 09:26] LABS: ABNORMAL IP MESSAGE 1; BASOPHILS % 0.1 % (0.0-2.0); EOSINOPHILS % 0.1 % (0.0-7.0); HEMATOCRIT 36.8 % (37.0-47.0); LYMPHOCYTES # 0.5 10^3/ul (0.8-2.9); LYMPHOCYTES % 3.8 % (15.0-51.0); MEAN CORPUSCULAR HEMOGLOBIN 29.8 pg (29.0-33.0); MEAN CORPUSCULAR HGB CONC 32.6 g/dl (32.0-37.0); MEAN CORPUSCULAR VOLUME 91.3 fl (82.0-101.0); MEAN PLATELET VOLUME 10.6 fl (7.4-10.4); MONOCYTE # 0.8 10^3/ul (0.3-0.9); MONOCYTES % 5.5 % (0.0-11.0); NEUTROPHIL # 12.1 10^3/ul (1.6-7.5); NEUTROPHILS % 88.2 % (39.0-77.0); PLATELET COUNT 102 10^3/UL (140-415); RED BLOOD COUNT 4.03 10^6/ul (4.20-5.40); RED CELL DISTRIBUTION WIDTH 15.6 % (11.5-14.5)
[2017-11-15 09:26] LABS: WHITE BLOOD COUNT 13.7 10^3/ul (4.8-10.8)
[2017-11-15 09:32] LABS: POSITIVE DIFF @See below
[2017-11-15] MEDS: DORZOLAMIDE 2% 10 ML OPH BOTH EYES ×2 (09:54→21:00)
[2017-11-15] MEDS: ASPIRIN (EC) 81 MG TAB PO (09:55)
[2017-11-15] MEDS: LORATADINE 10 MG TAB PO (09:55)
[2017-11-15] MEDS: PANTOPRAZOLE (EC) 40 MG TAB PO (09:55)
[2017-11-15 10:01] LABS: INR 1.06; PARTIAL THROMBOPLASTIN TIME 27.5 Sec (25.0-35.0); PROTIME 13.9 Sec (11.9-14.9); PT RATIO 1.1
[2017-11-15] MEDS: ENOXAPARIN 60 MG/0.6 ML SYG SC ×2 (10:13→22:27)
[2017-11-15 12:01] LABS: ANA SCREEN NEGATIVE (NEGATIVE)
[2017-11-15] MEDS: MAGNESIUM CITRATE 300 ML BTL PO (12:38)
[2017-11-15] MEDS: DILTIAZEM (CD) 180 MG CAP PO (12:38)
[2017-11-15] MEDS: PAROXETINE 10 MG TAB PO (22:26)
[2017-11-15] MEDS: ATORVASTATIN 40 MG TAB PO (22:26)
[2017-11-16] MEDS: ALBUTEROL 0.083% (NEB) 2.5 MG/3 ML AMP HHN ×4 (08:12→21:45)
[2017-11-16] MEDS: LORATADINE 10 MG TAB PO (09:03)
[2017-11-16] MEDS: PANTOPRAZOLE (EC) 40 MG TAB PO (09:03)
[2017-11-16] MEDS: ENOXAPARIN 60 MG/0.6 ML SYG SC ×2 (09:04→22:28)
[2017-11-16] MEDS: ASPIRIN (EC) 81 MG TAB PO (09:04)
[2017-11-16] MEDS: DORZOLAMIDE 2% 10 ML OPH BOTH EYES ×2 (09:05→21:00)
[2017-11-16] MEDS: DILTIAZEM (CD) 180 MG CAP PO (09:17)
[2017-11-16 15:07] LABS: ADD MAN DIFF? NO
[2017-11-16 15:14] LABS: ABNORMAL IP MESSAGE 1; BASOPHILS % 0.1 % (0.0-2.0); HEMATOCRIT 36.2 % (37.0-47.0); HEMOGLOBIN 11.6 g/dl (12.0-16.0); LYMPHOCYTES # 0.4 10^3/ul (0.8-2.9); LYMPHOCYTES % 3.3 % (15.0-51.0); MEAN CORPUSCULAR HEMOGLOBIN 29.3 pg (29.0-33.0); MEAN CORPUSCULAR VOLUME 91.4 fl (82.0-101.0); MEAN PLATELET VOLUME 10.8 fl (7.4-10.4); MONOCYTE # 0.5 10^3/ul (0.3-0.9); MONOCYTES % 3.9 % (0.0-11.0); NEUTROPHIL # 10.5 10^3/ul (1.6-7.5); NEUTROPHILS % 91.7 % (39.0-77.0); RED BLOOD COUNT 3.96 10^6/ul (4.20-5.40); RED CELL DISTRIBUTION WIDTH 15.5 % (11.5-14.5)
[2017-11-16 15:14] LABS: WHITE BLOOD COUNT 11.4 10^3/ul (4.8-10.8)
[2017-11-16 15:27] LABS: POSITIVE DIFF @See below
[2017-11-16 15:28] LABS: PLATELET COUNT 93 10^3/UL (140-415)
[2017-11-16 15:34] LABS: ANION GAP 8 (8-16); BLOOD UREA NITROGEN 30 mg/dl (7-20); CALCIUM 8.6 mg/dl (8.4-10.2); CARBON DIOXIDE 30 mmol/L (21-31); CHLORIDE 104 mmol/L (97-110); CREATININE 0.67 mg/dl (0.44-1.00); GLUCOSE 148 mg/dl (70-220); POTASSIUM 3.6 mmol/L (3.5-5.1); SODIUM 138 mmol/L (135-144)
[2017-11-16] MEDS: ATORVASTATIN 40 MG TAB PO (22:24)
[2017-11-16] MEDS: PAROXETINE 10 MG TAB PO (22:24)
[2017-11-17] MEDS: ALBUTEROL 0.083% (NEB) 2.5 MG/3 ML AMP HHN ×5 (09:00→20:09)
[2017-11-17] MEDS: LORATADINE 10 MG TAB PO (09:13)
[2017-11-17] MEDS: PANTOPRAZOLE (EC) 40 MG TAB PO (09:13)
[2017-11-17] MEDS: DILTIAZEM (CD) 180 MG CAP PO (09:13)
[2017-11-17] MEDS: DORZOLAMIDE 2% 10 ML OPH BOTH EYES ×2 (09:13→21:00)
[2017-11-17] MEDS: ASPIRIN (EC) 81 MG TAB PO (09:13)
[2017-11-17] MEDS: ENOXAPARIN 60 MG/0.6 ML SYG SC ×2 (09:22→21:36)
[2017-11-17 15:40] LABS: ADD MAN DIFF? NO
[2017-11-17 15:42] LABS: WHITE BLOOD COUNT 9.5 10^3/ul (4.8-10.8)
[2017-11-17 15:42] LABS: ABNORMAL IP MESSAGE 1; HEMATOCRIT 35.5 % (37.0-47.0); HEMOGLOBIN 11.6 g/dl (12.0-16.0); LYMPHOCYTES # 0.4 10^3/ul (0.8-2.9); LYMPHOCYTES % 4.3 % (15.0-51.0); MEAN CORPUSCULAR HEMOGLOBIN 29.6 pg (29.0-33.0); MEAN CORPUSCULAR HGB CONC 32.7 g/dl (32.0-37.0); MEAN CORPUSCULAR VOLUME 90.6 fl (82.0-101.0); MEAN PLATELET VOLUME 10.8 fl (7.4-10.4); MONOCYTE # 0.4 10^3/ul (0.3-0.9); MONOCYTES % 4.3 % (0.0-11.0); NEUTROPHIL # 8.6 10^3/ul (1.6-7.5); NEUTROPHILS % 90.3 % (39.0-77.0); PLATELET COUNT 86 10^3/UL (140-415); RED BLOOD COUNT 3.92 10^6/ul (4.20-5.40); RED CELL DISTRIBUTION WIDTH 15.9 % (11.5-14.5)
[2017-11-17 15:43] LABS: POSITIVE DIFF @See below
[2017-11-17 16:09] LABS: MAGNESIUM 2.4 mg/dl (1.7-2.5)
[2017-11-17 16:10] LABS: ANION GAP 8 (8-16); BLOOD UREA NITROGEN 26 mg/dl (7-20); CALCIUM 8.4 mg/dl (8.4-10.2); CARBON DIOXIDE 31 mmol/L (21-31); CHLORIDE 104 mmol/L (97-110); CREATININE 0.66 mg/dl (0.44-1.00); GLUCOSE 140 mg/dl (70-220); POTASSIUM 3.2 mmol/L (3.5-5.1); SODIUM 140 mmol/L (135-144)
[2017-11-17] MEDS: VITAMIN A & D 5 GM OINT PACKET TOP (16:12)
[2017-11-17] MEDS: DILTIAZEM 25 MG INJ IV ×2 (16:12→16:18)
[2017-11-17 16:21] LABS: TROPONIN-I 0.019 ng/ml (0.00-0.12)
[2017-11-17] MEDS: POTASSIUM CHLORIDE (SR) 20 MEQ TAB PO (17:13)
[2017-11-17] MEDS: POTASSIUM CHLORIDE 100 ML IVPB (17:45)
[2017-11-17] MEDS: POTASSIUM CHLORIDE 20 MEQ POWDER FOR ORAL SOLN PO (17:45)
[2017-11-17] MEDS: PAROXETINE 10 MG TAB PO (21:30)
[2017-11-17] MEDS: ATORVASTATIN 40 MG TAB PO (21:30)
[2017-11-18] MEDS: VITAMIN A & D 5 GM OINT PACKET TOP ×3 (00:04→21:46)
[2017-11-18] MEDS: DORZOLAMIDE 2% 10 ML OPH BOTH EYES ×3 (00:21→21:46)
[2017-11-18 06:42] LABS: ADD MAN DIFF? NO
[2017-11-18 06:52] LABS: ABNORMAL IP MESSAGE 1; BASOPHILS % 0.1 % (0.0-2.0); HEMATOCRIT 35.9 % (37.0-47.0); HEMOGLOBIN 11.9 g/dl (12.0-16.0); LYMPHOCYTES # 0.7 10^3/ul (0.8-2.9); LYMPHOCYTES % 8.3 % (15.0-51.0); MEAN CORPUSCULAR HEMOGLOBIN 30.1 pg (29.0-33.0); MEAN CORPUSCULAR HGB CONC 33.1 g/dl (32.0-37.0); MEAN CORPUSCULAR VOLUME 90.7 fl (82.0-101.0); MONOCYTE # 0.4 10^3/ul (0.3-0.9); MONOCYTES % 5.1 % (0.0-11.0); NEUTROPHIL # 6.9 10^3/ul (1.6-7.5); NEUTROPHILS % 85.3 % (39.0-77.0); RED BLOOD COUNT 3.96 10^6/ul (4.20-5.40); RED CELL DISTRIBUTION WIDTH 15.9 % (11.5-14.5)
[2017-11-18 06:52] LABS: WHITE BLOOD COUNT 8.1 10^3/ul (4.8-10.8)
[2017-11-18 07:00] LABS: PLATELET COUNT 93 10^3/UL (140-415); POSITIVE DIFF @See below
[2017-11-18 07:40] LABS: ANION GAP 9 (8-16); BLOOD UREA NITROGEN 23 mg/dl (7-20); CALCIUM 8.4 mg/dl (8.4-10.2); CARBON DIOXIDE 32 mmol/L (21-31); CHLORIDE 108 mmol/L (97-110); CREATININE 0.66 mg/dl (0.44-1.00); GLUCOSE 144 mg/dl (70-220); POTASSIUM 3.5 mmol/L (3.5-5.1); SODIUM 145 mmol/L (135-144)
[2017-11-18] MEDS: ALBUTEROL 0.083% (NEB) 2.5 MG/3 ML AMP HHN ×4 (08:46→20:15)
[2017-11-18] MEDS: LORATADINE 10 MG TAB PO (09:09)
[2017-11-18] MEDS: ASPIRIN (EC) 81 MG TAB PO (09:09)
[2017-11-18] MEDS: PANTOPRAZOLE (EC) 40 MG TAB PO (09:09)
[2017-11-18] MEDS: DILTIAZEM (CD) 180 MG CAP PO (09:09)
[2017-11-18] MEDS: ENOXAPARIN 60 MG/0.6 ML SYG SC ×2 (09:11→21:58)
[2017-11-18 14:47] LABS: PROCALCITONIN 1.25 ng/mL (<0.10)
[2017-11-18] MEDS: POTASSIUM CHLORIDE (1.33 MEQ/ML PO SYG) PO (16:32)
[2017-11-18] MEDS: POTASSIUM CHLORIDE 20 MEQ POWDER FOR ORAL SOLN PO (16:55)
[2017-11-18] MEDS: ATORVASTATIN 40 MG TAB PO (21:46)
[2017-11-18] MEDS: PAROXETINE 10 MG TAB PO (21:46)
[2017-11-19] MEDS: PANTOPRAZOLE (EC) 40 MG TAB PO (08:41)
[2017-11-19] MEDS: LORATADINE 10 MG TAB PO (08:41)
[2017-11-19] MEDS: DILTIAZEM (CD) 180 MG CAP PO (08:42)
[2017-11-19] MEDS: DORZOLAMIDE 2% 10 ML OPH BOTH EYES ×2 (08:42→21:15)
[2017-11-19] MEDS: VITAMIN A & D 5 GM OINT PACKET TOP ×2 (08:43→21:15)
[2017-11-19] MEDS: ENOXAPARIN 60 MG/0.6 ML SYG SC ×2 (08:44→21:17)
[2017-11-19] MEDS: ALBUTEROL 0.083% (NEB) 2.5 MG/3 ML AMP HHN ×4 (09:34→20:30)
[2017-11-19] MEDS: ATORVASTATIN 40 MG TAB PO ×2 (21:00→21:15)
[2017-11-19] MEDS: PAROXETINE 10 MG TAB PO ×2 (21:00→21:15)
[2017-11-20] MEDS: PANTOPRAZOLE (EC) 40 MG TAB PO (05:37)
[2017-11-20 07:42] LABS: ADD MAN DIFF? NO
[2017-11-20 07:50] LABS: ABNORMAL IP MESSAGE 1; BASOPHILS % 0.1 % (0.0-2.0); HEMATOCRIT 37.5 % (37.0-47.0); HEMOGLOBIN 12.4 g/dl (12.0-16.0); LYMPHOCYTES # 0.6 10^3/ul (0.8-2.9); LYMPHOCYTES % 7.8 % (15.0-51.0); MEAN CORPUSCULAR HEMOGLOBIN 29.7 pg (29.0-33.0); MEAN CORPUSCULAR HGB CONC 33.1 g/dl (32.0-37.0); MEAN CORPUSCULAR VOLUME 89.9 fl (82.0-101.0); MEAN PLATELET VOLUME 10.8 fl (7.4-10.4); MONOCYTE # 0.3 10^3/ul (0.3-0.9); MONOCYTES % 3.6 % (0.0-11.0); NEUTROPHIL # 6.2 10^3/ul (1.6-7.5); NEUTROPHILS % 87.9 % (39.0-77.0); PLATELET COUNT 106 10^3/UL (140-415); RED BLOOD COUNT 4.17 10^6/ul (4.20-5.40); RED CELL DISTRIBUTION WIDTH 15.4 % (11.5-14.5)
[2017-11-20 07:54] LABS: POSITIVE DIFF @See below
[2017-11-20 08:24] LABS: ANION GAP 8 (8-16); BLOOD UREA NITROGEN 16 mg/dl (7-20); CALCIUM 8.6 mg/dl (8.4-10.2); CARBON DIOXIDE 33 mmol/L (21-31); CHLORIDE 106 mmol/L (97-110); GLUCOSE 140 mg/dl (70-220); SODIUM 145 mmol/L (135-144)
[2017-11-20 08:38] LABS: POTASSIUM 2.3 mmol/L (3.5-5.1)
[2017-11-20] MEDS: LORATADINE 10 MG TAB PO ×2 (09:00→09:06)
[2017-11-20] MEDS: DILTIAZEM (CD) 180 MG CAP PO ×2 (09:00→09:07)
[2017-11-20] MEDS: AMLODIPINE 2.5 MG TAB NGT ×2 (09:00→09:06)
[2017-11-20] MEDS: DORZOLAMIDE 2% 10 ML OPH BOTH EYES ×2 (09:05→20:36)
[2017-11-20] MEDS: ENOXAPARIN 60 MG/0.6 ML SYG SC ×2 (09:09→20:37)
[2017-11-20] MEDS: VITAMIN A & D 5 GM OINT PACKET TOP ×2 (09:10→20:36)
[2017-11-20] MEDS: ALBUTEROL 0.083% (NEB) 2.5 MG/3 ML AMP HHN ×4 (09:22→20:23)
[2017-11-20 10:40] LABS: POTASSIUM 2.5 mmol/L (3.5-5.1)
[2017-11-20 11:50] LABS: AADO2 Arterial 82.8 mmHg (7.0-24.0); Allen Test ACCEPTAB; Arterial Base Excess 9.7 mmol/L (-3.0-3); Arterial Blood Gas Oxygen Sat 92.6 mmHG (95.0-100.0); Arterial COHb 0.5 % (0.0-3.0); Arterial MetHb 0.2 % (0.0-1.5); Arterial Total Hemglobin 13.5 g/dl (12.0-18.0); Arterial pCO2 39.9 mmhg (35-45); MODE NASAL CANNULA; Site Left Radial
[2017-11-20] MEDS: POTASSIUM CHLORIDE 100 ML IVPB ×3 (12:13→15:39)
[2017-11-20 13:04] LABS: ADD UMIC YES; UR ASCORBIC ACID NEGATIVE (NEGATIVE); UR BACTERIA FEW /HPF (NONE SEEN); UR BILIRUBIN (Dip) NEGATIVE (NEGATIVE); UR BLOOD (Dip) 1+ mg/dL (NEGATIVE); UR BUDDING YEAST MODERATE /HPF (NONE SEEN); UR CLARITY SLIGHTLY CLOUDY (CLEAR); UR COLOR YELLOW (YELLOW); UR GLUCOSE (Dip) NEGATIVE (NEGATIVE); UR KETONES (Dip) TRACE mg/dL (NEGATIVE); UR LEUKOCYTE ESTERASE (Dip) NEGATIVE Leu/ul (NEGATIVE); UR NITRITE (Dip) NEGATIVE (NEGATIVE); UR RBC 14 /HPF (0-5); UR SPECIFIC GRAVITY (Dip) 1.012 (1.003-1.030); UR TOTAL PROTEIN (Dip) 2+ mg/dl (NEGATIVE); UR UROBILINOGEN (Dip) 1+ mg/dL (NEGATIVE); UR WBC 1 /HPF (0-5)
[2017-11-20] MEDS: CLONIDINE 0.1 MG/24 HR PATCH TRANSDERM (15:39)
[2017-11-20] MEDS: ATORVASTATIN 40 MG TAB PO (20:38)
[2017-11-20] MEDS: PAROXETINE 10 MG TAB PO (20:38)
[2017-11-21] MEDS: VITAMIN A & D 5 GM OINT PACKET TOP ×2 (08:35→21:04)
[2017-11-21] MEDS: VALACYCLOVIR 500 MG TAB PO ×2 (08:36→20:59)
[2017-11-21] MEDS: PANTOPRAZOLE (EC) 40 MG TAB PO (08:36)
[2017-11-21] MEDS: AMLODIPINE 2.5 MG TAB NGT (08:37)
[2017-11-21] MEDS: DOCUSATE SODIUM 100 MG CAP PO (08:37)
[2017-11-21] MEDS: DILTIAZEM (CD) 180 MG CAP PO (08:37)
[2017-11-21] MEDS: LORATADINE 10 MG TAB PO (08:37)
[2017-11-21] MEDS: DORZOLAMIDE 2% 10 ML OPH BOTH EYES ×2 (08:37→20:59)
[2017-11-21] MEDS: ENOXAPARIN 60 MG/0.6 ML SYG SC ×2 (08:39→21:02)
[2017-11-21] MEDS: ALBUTEROL 0.083% (NEB) 2.5 MG/3 ML AMP HHN ×4 (09:26→20:17)
[2017-11-21 09:51] LABS: ADD MAN DIFF? NO
[2017-11-21 09:55] LABS: HEMATOCRIT 37.6 % (37.0-47.0); HEMOGLOBIN 12.4 g/dl (12.0-16.0); LYMPHOCYTES # 0.6 10^3/ul (0.8-2.9); LYMPHOCYTES % 8.6 % (15.0-51.0); MEAN CORPUSCULAR HEMOGLOBIN 29.7 pg (29.0-33.0); MEAN CORPUSCULAR VOLUME 90.2 fl (82.0-101.0); MEAN PLATELET VOLUME 10.8 fl (7.4-10.4); MONOCYTE # 0.2 10^3/ul (0.3-0.9); MONOCYTES % 2.7 % (0.0-11.0); NEUTROPHIL # 6.2 10^3/ul (1.6-7.5); NEUTROPHILS % 88.1 % (39.0-77.0); PLATELET COUNT 103 10^3/UL (140-415); RED BLOOD COUNT 4.17 10^6/ul (4.20-5.40); RED CELL DISTRIBUTION WIDTH 15.6 % (11.5-14.5)
[2017-11-21 10:24] LABS: ANION GAP 7 (8-16); BLOOD UREA NITROGEN 17 mg/dl (7-20); CALCIUM 8.3 mg/dl (8.4-10.2); CARBON DIOXIDE 35 mmol/L (21-31); CHLORIDE 107 mmol/L (97-110); CREATININE 0.69 mg/dl (0.44-1.00); GLUCOSE 140 mg/dl (70-220); MAGNESIUM 2.2 mg/dl (1.7-2.5); SODIUM 146 mmol/L (135-144)
[2017-11-21 10:26] LABS: POTASSIUM 2.6 mmol/L (3.5-5.1)
[2017-11-21 12:47] LABS: MAGNESIUM 2.1 mg/dl (1.7-2.5)
[2017-11-21 12:54] LABS: POTASSIUM 2.3 mmol/L (3.5-5.1)
[2017-11-21] MEDS: POTASSIUM CHLORIDE IVPB ×2 (15:54→20:59)
[2017-11-21] MEDS: SOD CHLORIDE 0.45% IVPB ×2 (15:54→20:59)
[2017-11-21] MEDS: PAROXETINE 10 MG TAB PO (20:59)
[2017-11-21] MEDS: ATORVASTATIN 40 MG TAB PO (20:59)
[2017-11-22] MEDS: PANTOPRAZOLE (EC) 40 MG TAB PO (07:34)
[2017-11-22 08:49] LABS: ADD MAN DIFF? NO
[2017-11-22] MEDS: LORATADINE 10 MG TAB PO (08:52)
[2017-11-22] MEDS: VALACYCLOVIR 500 MG TAB PO (08:52)
[2017-11-22] MEDS: DILTIAZEM (CD) 180 MG CAP PO (08:52)
[2017-11-22] MEDS: AMLODIPINE 2.5 MG TAB NGT (08:52)
[2017-11-22] MEDS: DOCUSATE SODIUM 100 MG CAP PO (08:52)
[2017-11-22 08:53] LABS: ABNORMAL IP MESSAGE 1; BASOPHILS % 0.2 % (0.0-2.0); EOSINOPHILS % 0.3 % (0.0-7.0); HEMATOCRIT 36.1 % (37.0-47.0); HEMOGLOBIN 11.8 g/dl (12.0-16.0); LYMPHOCYTES # 0.8 10^3/ul (0.8-2.9); LYMPHOCYTES % 14.3 % (15.0-51.0); MEAN CORPUSCULAR HEMOGLOBIN 29.9 pg (29.0-33.0); MEAN CORPUSCULAR HGB CONC 32.7 g/dl (32.0-37.0); MEAN CORPUSCULAR VOLUME 91.6 fl (82.0-101.0); MONOCYTE # 0.2 10^3/ul (0.3-0.9); MONOCYTES % 3.5 % (0.0-11.0); NEUTROPHIL # 4.6 10^3/ul (1.6-7.5); NEUTROPHILS % 80.8 % (39.0-77.0); PLATELET COUNT 92 10^3/UL (140-415); RED BLOOD COUNT 3.94 10^6/ul (4.20-5.40); RED CELL DISTRIBUTION WIDTH 15.4 % (11.5-14.5)
[2017-11-22 08:53] LABS: WHITE BLOOD COUNT 5.7 10^3/ul (4.8-10.8)
[2017-11-22] MEDS: VITAMIN A & D 5 GM OINT PACKET TOP (08:53)
[2017-11-22] MEDS: DORZOLAMIDE 2% 10 ML OPH BOTH EYES (08:53)
[2017-11-22] MEDS: ENOXAPARIN 60 MG/0.6 ML SYG SC (08:58)
[2017-11-22 08:59] LABS: POSITIVE DIFF @See below
[2017-11-22 09:03] LABS: HEMOGLOBIN A1C 6.5 % (0-5.9)
[2017-11-22] MEDS: ALBUTEROL 0.083% (NEB) 2.5 MG/3 ML AMP HHN ×2 (09:21→12:49)
[2017-11-22 09:25] LABS: ALANINE AMINOTRANSFERASE 68 IU/L (13-69); ALBUMIN 2.3 g/dl (3.3-4.9); ALBUMIN/GLOBULIN RATIO 1.04; ALKALINE PHOSPHATASE 72 IU/L (42-121); ANION GAP 7 (8-16); ASPARTATE AMINO TRANSFERASE 36 IU/L (15-46); BILIRUBIN,INDIRECT 0.7 mg/dl (0-1.1); BILIRUBIN,TOTAL 0.7 mg/dl (0.2-1.3); BLOOD UREA NITROGEN 15 mg/dl (7-20); CALCIUM 8.2 mg/dl (8.4-10.2); CARBON DIOXIDE 34 mmol/L (21-31); CHLORIDE 108 mmol/L (97-110); CREATININE 0.69 mg/dl (0.44-1.00); GLUCOSE 115 mg/dl (70-220); LIPASE 265 U/L (23-300); POTASSIUM 3.5 mmol/L (3.5-5.1); SODIUM 145 mmol/L (135-144); TOTAL PROTEIN 4.5 g/dl (6.1-8.1)
[2017-11-22] MEDS ORDERED: GLUCOSE GEL 15 GRAM TUBE PO ×2 (10:00)
[2017-11-22] MEDS ORDERED: GLUCOSE GEL 15 GRAM TUBE BUCCAL (10:00)
[2017-11-22] MEDS ORDERED: GLUCAGON 1 MG INJ IM (10:00)
[2017-11-22] MEDS ORDERED: DEXTROSE 50% 50 ML SYRINGE IV ×2 (10:00)
[2017-11-22] MEDS: POTASSIUM CHLORIDE (SR) 20 MEQ TAB PO (12:18)
[2017-11-23] MEDS ORDERED: metFORMIN 500 MG TAB PO (08:00)
[2017-11-24 16:06] LABS: ALDOSTERONE <1 ng/dL
== END 2017-11-22 17:23 | DRG 190 ==
LOC: E/R 11:40 → MS3 12:24 → MS4 20:32
DX: J44.1 Chronic obstructive pulmonary disease with (acute) exacerbation (principal); J18.9 Pneumonia, unspecified organism; G93.40 Encephalopathy, unspecified; F03.90 Unspecified dementia, unspecified severity, without behavioral disturbance, psychotic disturbance, mood disturbance, and anxiety; I82.412 Acute embolism and thrombosis of left femoral vein; I48.0 Paroxysmal atrial fibrillation; N39.0 Urinary tract infection, site not specified; I82.432 Acute embolism and thrombosis of left popliteal vein; I10 Essential (primary) hypertension; D72.829 Elevated white blood cell count, unspecified; E83.42 Hypomagnesemia; E87.6 Hypokalemia; R91.8 Other nonspecific abnormal finding of lung field; E78.5 Hyperlipidemia, unspecified; F32.9 Major depressive disorder, single episode, unspecified; B00.1 Herpesviral vesicular dermatitis; R73.03 Prediabetes; R53.83 Other fatigue; S92.342D Displaced fracture of fourth metatarsal bone, left foot, subsequent encounter for fracture with routine healing
CPT/HCPCS: 36600; 70220; 70450; 71045; 73620; 80048; 80053; 81001; 82088; 82533; 82803; 83036; 83615; 83690; 83735; 83880; 84132; 84145; 84484; 85025; 85610; 85651; 85730; 86038; 86140; 86430; 86635; 86698; 87040; 87070; 87081; 87086; 87400; 92526; 92610; 93005; 93306; 93970; 94640; 94644; 96374; 97110; 97162; 99285-25